=== PATIENT | female | born 1935 | race Caucasian/White ===

== ENCOUNTER 2020-09-05 00:46 | Inpatient (IN) | payer OTHER ==
[2020-09-05] MEDS ORDERED: METOPROLOL TARTRATE 5 MG/5 ML INJ IV ONE ×3 (01:48→17:49)
[2020-09-05 01:56] LABS: Absolute Lymphocytes (CBC) 0.9 K/uL (0.7-4.9); Basophils % 0.1 % (0-1.3); Lymphocytes % 8.3 % (15.3-44.8); MPV 8.6 fL (7.6-11.3); Protime INR 1.29; RBC Red Blood Cell Count 4.56 M/uL (3.86-4.86)
[2020-09-05 02:45] LABS: Albumin 2.6 g/dL (3.4-5.0); Bilirubin Direct 0.3 mg/dL (0-0.2); Bilirubin Total 0.6 mg/dL (0.2-1.0); Potassium 3.6 mmol/L (3.5-5.1); Protein, Total 6.7 g/dL (6.4-8.2); Troponin (Emerg Dept Use Only) 0.03 ng/mL (0.0-0.045)
--- NOTE | 2020-09-05 07:06 | ER ---
Nurse's Notes [facility] Name: Puja Ahn Age: 85 yrs Sex: Female : 1935 Arrival Date: 09/05/2020 Time: 01:05 Bed 25 Private MD: Diagnosis: Chest pain, unspecified;Atrial Fibrillation with RVR Presentation: 09/05 01:00 Initial Sepsis Screen: Does the patient meet any 2 criteria? HR > 90 bpm. No. Patient's sf initial sepsis screen is negative. Does the patient have a suspected source of infection? No. Patient's initial sepsis screen is negative. Risk Assessment: Do you want to hurt yourself or someone else? Patient reports no desire to harm self or others. Onset of symptoms was September 02, 2020. 01:00 Acuity: DENIS 2 01:07 Chief complaint: EMS states: Chest pain starting , seen by her PCP, Zelda with [facility], given tylenol no labs or other work-up at that time. Today complains of pain radiating to shoulders, dizziness, weakness, had episode of vomiting enroute. Coronavirus screen: Client denies travel out of the [place] in the last 14 days. vomiting. At this time, the client does not indicate any symptoms associated with coronavirus-19. Ebola Screen: Patient negative for fever greater than or equal to 101.5 degrees Fahrenheit, and additional compatible Ebola Virus Disease symptoms Patient denies exposure to infectious person. Patient denies travel to an Ebola-affected area in the 21 days before illness onset. No symptoms or risks identified at this time. 01:07 Method Of Arrival: EMS: [facility] Triage Assessment: 01:15 General: Appears in no apparent distress. comfortable, Behavior is calm, cooperative, sf appropriate for age. Pain: Denies pain. Neuro: No deficits noted. Level of Consciousness is awake, alert, Oriented to person, place, time, situation, Appropriate for age. Cardiovascular: Reports chest pain, (now resolved) Denies shortness of breath, Patient's skin is warm and dry. Rhythm is atrial fibrillation with rapid ventricular response. Respiratory: No deficits noted. Airway is patent Respiratory effort is even, unlabored, Respiratory pattern is regular, symmetrical. GI: Patient currently denies abdominal pain, nausea, vomiting. : No signs and/or symptoms were reported regarding the genitourinary system. Historical: - Allergies: 01:15 No Known Allergies; sf - Home Meds: 01:15 metoprolol succinate 50 mg oral Tb24 1 tab once daily [Active]; acetaminophen 500 mg sf Oral tab 1 tab three times a day [Active]; Plavix 75 mg Oral tab 1 tab once daily [Active]; atorvastatin 10 mg oral tab 1 tab once daily [Active]; irbesartan 300 mg oral tab 1 tab once daily [Active]; - PMHx: 01:15 Hypertension; High Cholesterol; Gastric Reflux; TIA; Atrial Fib; sf - PSHx: 01:15 None; sf - Immunization history:: Adult Immunizations up to date. - Social history:: Smoking status: Patient denies any tobacco usage or history of. Patient/guardian denies using alcohol, street drugs, IV drugs. Screenin:10 Abuse screen: Denies threats or abuse. Denies injuries from another. Nutritional sf screening: No deficits noted. Tuberculosis screening: No symptoms or risk factors identified. Never had TB. Possible symptoms: None Risk factors: None. Fall Risk None identified. No fall in past 12 months (0 pts). No secondary diagnosis (0 pts). IV access (20 points). Ambulatory Aid- None/Bed Rest/Nurse Assist (0 pts). Gait- Weak (10 pts.). Mental Status- Oriented to own ability (0 pts). Total Damon Fall Scale indicates Low Risk Score (25-44 pts). Fall prevention measures have been instituted. Side Rails Up X 2 Placed close to Nursing Station. Assessment: 01:00 Reassessment: SEE TRIAGE NOTE. sf 02:10 Reassessment: Patient appears in no apparent distress at this time. No changes from sf previously documented assessment. Patient and/or family updated on plan of care and expected duration. Pain level reassessed. Patient is alert, oriented x 3, equal unlabored respirations, skin warm/dry/pink. Patient states symptoms have improved. 03:30 Reassessment: Patient appears in no apparent distress at this time. No changes from sf previously documented assessment. Patient and/or family updated on plan of care and expected duration. Pain level reassessed. Patient is alert, oriented x 3, equal unlabored respirations, skin warm/dry/pink. 04:34 Reassessment: Patient appears in no apparent distress at this time. No changes from sf previously documented assessment. Patient and/or family updated on plan of care and expected duration. Pain level reassessed. Patient is alert, oriented x 3, equal unlabored respirations, skin warm/dry/pink. 05:26 Reassessment: Patient appears in no apparent distress at this time. Patient and/or sf family updated on plan of care and expected duration. Pain level reassessed. Patient is alert, oriented x 3, equal unlabored respirations, skin warm/dry/pink. 06:17 Reassessment: Patient appears in no apparent distress at this time. No changes from sf previously documented assessment. Patient and/or family updated on plan of care and expected duration. Pain level reassessed. Patient is alert, oriented x 3, equal unlabored respirations, skin warm/dry/pink. 07:25 Reassessment: pt up to bedside toilet with standby assist, no problems encountered. sg 07:40 Reassessment: pt observed back to bed, states feeling better, updated on need for sg admission, pt stated understanding, request to call to update him. pt states has phone with her. 09:15 Reassessment: Patient appears in no apparent distress at this time. Patient and/or ca1 family updated on plan of care and expected duration. Pain level reassessed. Patient is alert, oriented x 3, equal unlabored respirations, skin warm/dry/pink. Dr. Gilmore at bedside. Reassessment: Pt served with breakfast. 09:35 Reassessment: VO Dr. Gilmore, Give pt's Home meds at bedside. Irbesartan 300mg PO, ca1 Metoprolol Succinate ER 50 mg PO. 10:10 Reassessment: Patient appears in no apparent distress at this time. Patient and/or ca1 family updated on plan of care and expected duration. Pain level reassessed. Patient is alert, oriented x 3, equal unlabored respirations, skin warm/dry/pink. General: Appears. 10:37 Reassessment: Critical Lab Trop 1.88. Dr. Gilmore Notified by Telephone. No orders at ca1 this time. 11:05 Reassessment: Patient appears in no apparent distress at this time. Patient and/or ca1 family updated on plan of care and expected duration. Pain level reassessed. Patient is alert, oriented x 3, equal unlabored respirations, skin warm/dry/pink. 11:10 Reassessment: Called for report. Nurse will call back. ca1 11:50 Reassessment: Called for report. Nurse will call back. ca1 12:08 Reassessment: Patient appears in no apparent distress at this time. Patient and/or ca1 family updated on plan of care and expected duration. Pain level reassessed. Patient is alert, oriented x 3, equal unlabored respirations, skin warm/dry/pink. Vital Signs: 01:00 BP 158 / 138; Pulse 128; Resp 18; Temp 97.5(O); Pulse Ox 96% ; Weight 58.06 kg; Height sf 5 ft. 5 in. (165.10 cm); Pain 0/10; 01:30 BP 150 / 81; Pulse 122; Resp 18; Pulse Ox 95% ; sf 01:44 Pulse 86; sf 02:13 BP 118 / 81; Pulse 96; Resp 18; Pulse Ox 96% ; sf 02:30 BP 134 / 91; Pulse 101; Resp 16; Pulse Ox 96% ; sf 03:30 BP 148 / 83; Pulse 114; Resp 16; Pulse Ox 94% ; sf 04:00 BP 118 / 98; Pulse 119; Resp 16; Pulse Ox 95% ; sf 04:30 BP 110 / 70; Pulse 124; Resp 16; Pulse Ox 96% ; sf 05:01 BP 145 / 70; Pulse 52; Resp 16; Pulse Ox 95% ; sf 06:00 BP 138 / 94; Pulse 115; Resp 16; Pulse Ox 96% ; sf 06:30 BP 143 / 115; Pulse 127; Resp 16; Pulse Ox 93% ; sf 07:00 BP 129 / 90; Pulse 103; Resp 16; Pulse Ox 97% ; sf 09:04 BP 123 / 92; Pulse 122; Resp 19 S; Pulse Ox 96% on R/A; ca1 09:43 Pulse 111; ca1 10:00 BP 142 / 87; Pulse 116; Resp 16 S; Pulse Ox 96% on R/A; ca1 11:00 BP 111 / 80; Pulse 115; Resp 20 S; Pulse Ox 96% on R/A; ca1 12:08 BP 128 / 72; Pulse 116; Resp 19 S; Pulse Ox 97% on R/A; ca1 01:00 Body Mass Index 21.30 (58.06 kg, 165.10 cm) sf Vitals: 01:44 Cardiac Rhythm Assessment Atrial fibrillation W/PVC's. sf 04:00 Cardiac Rhythm Assessment Atrial fibrillation. sf ED Course: 01:02 EKG completed in triage. Results shown to MD. sf 01:02 EKG done, by ED staff, reviewed by Davonte Melgar MD. sf 01:05 Patient arrived in ED. sg 01:06 Harshad Saavedra, RN is Primary Nurse. sf 01:08 Davonte Melgar MD is Attending Physician. mh7 01:10 Patient has correct armband on for positive identification. Placed in gown. Bed in low sf position. Call light in reach. Side rails up X2. nurse monitoring on. Pulse ox on. NIBP on. Door closed. Noise minimized. Visitors limited. Lights dimmed. Verbal reassurance given. 01:10 Maintain EMS IV. Dressing intact. Good blood return noted. Site clean \T\ dry. Gauge \T\ sf site: 18 GA right AC. 01:13 Triage completed. sf 01:15 Arm band placed on left wrist. sf 01:30 Initial lab(s) drawn, by ky, sent to lab. IV is patent, is intact, with good blood sf return, Flushed right antecubital. 01:40 Magnesium Sent. sf 01:40 LFT's Sent. sf 01:40 CBC with Diff Sent. sf 01:40 XRAY Chest (1 view) Sent. sf 01:40 Basic Metabolic Panel Sent. sf 01:41 X-ray(s) taken. sf 01:46 XRAY Chest (1 view) In Process Unspecified. EDMS 02:18 No provider procedures requiring assistance completed. Patient admitted, IV remains in sf place. 02:45 COVID swab sent to lab. sf 03:29 CORONAVIRUS Sent. sf 07:04 Rudy Gilmore MD is Hospitalizing Provider. [facility] 07:07 Primary Nurse role handed off by Harshad Saavedra, SALUD sg 07:07 Harshad Guzmán, SALUD is Primary Nurse. sg 07:16 Report given to Harshad Rodriguez RN. sf 09:15 Adrianna Singh RN is Primary Nurse. ca1 Administered Medications: 01:30 Drug: Metoprolol 5 mg Route: IVP; Site: right antecubital; sf 02:23 Follow up: Response: No adverse reaction; Blood pressure is lowered sf 06:49 Drug: Metoprolol 5 mg Route: IVP; Site: right antecubital; sf 07:09 Follow up: Response: No adverse reaction; Blood pressure is lowered sf 07:13 Drug: Aspirin Chewable Tablet 162 mg Route: PO; sf 10:56 Follow up: Response: No adverse reaction ca1 09:38 Drug: metoprolol succinate ER 50 mg 1 tabs Route: PO; ca1 10:55 Follow up: Response: No adverse reaction ca1 09:41 Drug: Irbesartan 300 mg Route: PO; ca1 10:55 Follow up: Response: No adverse reaction ca1 Outcome: 02:19 Instructed on the need for admit, by DORITA Byrd sf 07:05 Decision to Hospitalize by Provider. [facility] 11:33 Condition: stable ca1 12:20 Admitted to Med/surg accompanied by tech, via stretcher, room 222, with chart, Report ca1 called to SALUD Leroy 12:55 Patient left the ED. iw Signatures: Dispatcher [facility] EDMS Harshad Guzmán RN RN sg Lida Turcios RN RN Thomas Eng RN RN rr5 Adrianna Singh RN RN ca1 Davonte Melgar MD MD [facility] Harshad Saavedra RN RN sf Corrections: (The following items were deleted from the chart) 07:19 07:16 Report given to Jennifer Patricia RN sf 09:01 07:25 Reassessment: pt up to bedside toilet with standby assist, no problems sg encountered. rr5 09:01 07:40 Reassessment: pt observed back to bed, states feeling better, updated on need for sg admission, pt stated understanding, request to call to update him. pt states has phone with her rr5 12:16 10:37 Reassessment: Critical Lab Trop 1.88. Dr. Gilmore Notified. ca1 ca1
--- NOTE | 2020-09-05 07:06 | EDPHYS ---
Physician Documentation [facility] Name: Puja Ahn Age: 85 yrs Sex: Female : 1935 Arrival Date: 09/05/2020 Time: 01:05 Bed 25 Private MD: ED Physician Davonte Melgar HPI: 09/05 02:58 This 85 yrs old Female presents to ER via EMS with complaints of Doesn't Feel mh7 Right. 02:58 The patient or guardian reports chest pain that is located primarily in the substernal mh7 area. Onset: 2 day(s) ago. The pain radiates to back. Associated signs and symptoms: Pertinent positives: palpitations, shortness of breath, generalized fatigue, Pertinent negatives: abdominal pain, cough, diaphoresis, dizziness, headache, lower extremity pain, lower extremity swelling, lightheadedness, nausea, near syncope, recent travel, syncope, vomiting. The chest pain is described as a pressure. Duration: The patient or guardian reports multiple episodes, that are intermittent, that wax and wane, with no pattern. Modifying factors: The symptoms are alleviated by nothing. the symptoms are aggravated by nothing. Severity of pain: At its worst the pain was moderate 2 day(s) ago, in the emergency department the pain has improved moderately. Historical: - Allergies: 01:15 No Known Allergies; sf - Home Meds: 01:15 metoprolol succinate 50 mg oral Tb24 1 tab once daily [Active]; acetaminophen 500 mg sf Oral tab 1 tab three times a day [Active]; Plavix 75 mg Oral tab 1 tab once daily [Active]; atorvastatin 10 mg oral tab 1 tab once daily [Active]; irbesartan 300 mg oral tab 1 tab once daily [Active]; - PMHx: 01:15 Hypertension; High Cholesterol; Gastric Reflux; TIA; Atrial Fib; sf - PSHx: 01:15 None; sf - Immunization history:: Adult Immunizations up to date. - Social history:: Smoking status: Patient denies any tobacco usage or history of. Patient/guardian denies using alcohol, street drugs, IV drugs. ROS: 03:03 Constitutional: Negative for fever, chills, and weight loss, Eyes: Negative for injury, mh7 pain, redness, and discharge, ENT: Negative for injury, pain, and discharge, Neck: Negative for injury, pain, and swelling, Abdomen/GI: Negative for abdominal pain, nausea, vomiting, diarrhea, and constipation, Back: Negative for injury and pain, : Negative for injury, bleeding, discharge, and swelling, MS/Extremity: Negative for injury and deformity, Skin: Negative for injury, rash, and discoloration, Neuro: Negative for headache, weakness, numbness, tingling, and seizure, Psych: Negative for depression, anxiety, suicide ideation, homicidal ideation, and hallucinations, Allergy/Immunology: Negative for hives, rash, and allergies, Endocrine: Negative for neck swelling, polydipsia, polyuria, polyphagia, and marked weight changes, Hematologic/Lymphatic: Negative for swollen nodes, abnormal bleeding, and unusual bruising. Exam: 03:03 Constitutional: This is a well developed, well nourished patient who is awake, alert, mh7 and in no acute distress. Head/Face: Normocephalic, atraumatic. Eyes: Pupils equal round and reactive to light, extra-ocular motions intact. Lids and lashes normal. Conjunctiva and sclera are non-icteric and not injected. Cornea within normal limits. Periorbital areas with no swelling, redness, or edema. Neck: Trachea midline, no thyromegaly or masses palpated, and no cervical lymphadenopathy. Supple, full range of motion without nuchal rigidity, or vertebral point tenderness. No Meningismus. Chest/axilla: Normal chest wall appearance and motion. Nontender with no deformity. No lesions are appreciated. 03:03 Abdomen/GI: Soft, non-tender, with normal bowel sounds. No distension or tympany. No guarding or rebound. No evidence of tenderness throughout. Back: No spinal tenderness. No costovertebral tenderness. Full range of motion. Skin: Warm, dry with normal turgor. Normal color with no rashes, no lesions, and no evidence of cellulitis. MS/ Extremity: Pulses equal, no cyanosis. Neurovascular intact. Full, normal range of motion. Neuro: Awake and alert, GCS 15, oriented to person, place, time, and situation. Cranial nerves II-XII grossly intact. Motor strength 5/5 in all extremities. Sensory grossly intact. Cerebellar exam normal. Normal gait. Psych: Awake, alert, with orientation to person, place and time. Behavior, mood, and affect are within normal limits. 03:03 Cardiovascular: Rate: tachycardic, Rhythm: irregularly irregular, Pulses: no pulse deficits are appreciated, Heart sounds: normal, normal S1and S2, Edema: is not appreciated, JVD: is not appreciated. 03:03 Respiratory: the patient does not display signs of respiratory distress, Respirations: normal, Breath sounds: rhonchi, that are mild, are scattered, Respiratory rate: 18 Vital Signs: 01:00 BP 158 / 138; Pulse 128; Resp 18; Temp 97.5(O); Pulse Ox 96% ; Weight 58.06 kg; Height sf 5 ft. 5 in. (165.10 cm); Pain 0/10; 01:30 BP 150 / 81; Pulse 122; Resp 18; Pulse Ox 95% ; sf 01:44 Pulse 86; sf 02:13 BP 118 / 81; Pulse 96; Resp 18; Pulse Ox 96% ; sf 02:30 BP 134 / 91; Pulse 101; Resp 16; Pulse Ox 96% ; sf 03:30 BP 148 / 83; Pulse 114; Resp 16; Pulse Ox 94% ; sf 04:00 BP 118 / 98; Pulse 119; Resp 16; Pulse Ox 95% ; sf 04:30 BP 110 / 70; Pulse 124; Resp 16; Pulse Ox 96% ; sf 05:01 BP 145 / 70; Pulse 52; Resp 16; Pulse Ox 95% ; sf 06:00 BP 138 / 94; Pulse 115; Resp 16; Pulse Ox 96% ; sf 06:30 BP 143 / 115; Pulse 127; Resp 16; Pulse Ox 93% ; sf 07:00 BP 129 / 90; Pulse 103; Resp 16; Pulse Ox 97% ; sf 09:04 BP 123 / 92; Pulse 122; Resp 19 S; Pulse Ox 96% on R/A; ca1 09:43 Pulse 111; ca1 10:00 BP 142 / 87; Pulse 116; Resp 16 S; Pulse Ox 96% on R/A; ca1 11:00 BP 111 / 80; Pulse 115; Resp 20 S; Pulse Ox 96% on R/A; ca1 12:08 BP 128 / 72; Pulse 116; Resp 19 S; Pulse Ox 97% on R/A; ca1 01:00 Body Mass Index 21.30 (58.06 kg, 165.10 cm) sf MDM: 07:02 Differential diagnosis: abnormal EKG, acute myocardial infarction, acute pericarditis, 7 anxiety, coronary artery disease chest wall pain, congestive heart failure costochondritis, myocarditis, pleurisy, pneumonia, pneumothorax. HEART Score: History: Moderately Suspicious (1), ECG: Non specific repolarization disturbance / LBTB / PM (1), Age: > or = 65 years (2), Risk Factors: 1 or 2 risk factors (1), [Hypercholesterolemia] [Hypertension] Troponin: < or = 1 x Normal Limit (0), Total Score = 5. Data reviewed: vital signs, nurses notes, EMS record, lab test result(s), cardiac enzymes, CBC, electrolytes, EKG, radiologic studies, plain films. Data interpreted: Pulse oximetry: on room air is 95 %. Interpretation: normal. 07:04 Counseling: I had a detailed discussion with the patient and/or guardian regarding: the [facility] historical points, exam findings, and any diagnostic results supporting the discharge/admit diagnosis, the presence of at least one elevated blood pressure reading (>120/80) during this emergency department visit, lab results, radiology results, the need for further work-up and treatment in the hospital. Response to treatment: the patient's symptoms have mildly improved after treatment. 07:05 Patient medically screened. [facility] 09/05 01:17 Order name: Basic Metabolic Panel [facility] 09/05 01:17 Order name: CBC with Diff [facility] 09/05 01:17 Order name: LFT's [facility] 09/05 01:17 Order name: Magnesium [facility] 09/05 01:17 Order name: NT PRO-BNP; Complete Time: 02:58 [facility] 09/05 01:17 Order name: PT-INR; Complete Time: 02:13 [facility] 09/05 01:17 Order name: Troponin (emerg Dept Use Only); Complete Time: 02:58 [facility] 09/05 01:18 Order name: Basic Metabolic Panel; Complete Time: 02:58 [facility] 09/05 01:18 Order name: CBC with Automated Diff; Complete Time: 02:13 [facility] 09/05 01:18 Order name: Liver (Hepatic) Function; Complete Time: 02:58 EDMS 09/05 01:18 Order name: Magnesium; Complete Time: 02:58 EDMS 09/05 03:11 Order name: CORONAVIRUS [facility] 09/05 04:31 Order name: SARS-COV-2 RT PCR; Complete Time: 06:40 EDMS 09/05 01:17 Order name: XRAY Chest (1 view) [facility] 09/05 01:17 Order name: EKG; Complete Time: 01:19 7 09/05 07:31 Order name: CONS Physician Consult EDMS 09/05 07:31 Order name: Consistent Carb (ADA) [address] EDMS 09/05 07:31 Order name: Basic Metabolic Panel EDMS 09/05 07:31 Order name: Basic Metabolic Panel EDMS 09/05 07:31 Order name: CBC with Automated Diff EDMS 09/05 07:31 Order name: CBC with Automated Diff EDMS 09/05 07:31 Order name: Troponin I EDMS 09/05 07:31 Order name: Troponin I EDMS 09/05 07:31 Order name: Troponin I EDMS 09/05 01:07 Order name: EKG - Nurse/Tech; Complete Time: 01:07 09/05 01:17 Order name: Cardiac monitoring; Complete Time: 01:20 [facility] 09/05 01:17 Order name: IV Saline Lock; Complete Time: 01:20 [facility] 09/05 01:17 Order name: Labs collected and sent; Complete Time: 01:39 7 09/05 01:17 Order name: O2 Per Protocol; Complete Time: 01:20 [facility] 09/05 01:17 Order name: O2 Sat Monitoring; Complete Time: 01:20 7 09/05 07:31 Order name: EKG Electrocardiogram [facility] 09/05 07:31 Order name: EKG Electrocardiogram [facility] 09/05 07:31 Order name: EKG Electrocardiogram [facility] 09/05 07:31 Order name: EKG Electrocardiogram EDMS Administered Medications: 01:30 Drug: Metoprolol 5 mg Route: IVP; Site: right antecubital; sf 02:23 Follow up: Response: No adverse reaction; Blood pressure is lowered sf 06:49 Drug: Metoprolol 5 mg Route: IVP; Site: right antecubital; sf 07:09 Follow up: Response: No adverse reaction; Blood pressure is lowered sf 07:13 Drug: Aspirin Chewable Tablet 162 mg Route: PO; sf 10:56 Follow up: Response: No adverse reaction ca1 09:38 Drug: metoprolol succinate ER 50 mg 1 tabs Route: PO; ca1 10:55 Follow up: Response: No adverse reaction ca1 09:41 Drug: Irbesartan 300 mg Route: PO; ca1 10:55 Follow up: Response: No adverse reaction ca1 Disposition: 09/05/20 07:05 Hospitalization ordered by Rudy Gilmore for Inpatient Admission. Preliminary diagnosis are Chest pain, unspecified, Atrial Fibrillation with RVR. - Bed requested for Telemetry/MedSurg (Inpatient). - Status is Inpatient Admission. iw - Condition is Stable. - Problem is new. - Symptoms have improved. Signatures: Dispatcher [employer] EDMS Lida Turcios RN RN iw Laquita Baxter Adrianna Singh RN RN ca1 Davonte Melgar MD MD 7 Harshad Saavedra RN RN sf Corrections: (The following items were deleted from the chart) 11:01 07:05 Hospitalization Ordered by Rudy Gilmore MD for Inpatient Admission. Preliminary eb diagnosis is Chest pain, unspecified; Atrial Fibrillation with RVR. Bed requested for Telemetry/MedSurg (Inpatient). Status is Inpatient Admission. Condition is Stable. Problem is new. Symptoms have improved. [facility] 12:55 11:01 09/05/2020 07:05 Hospitalization Ordered by Rudy Gilmore MD for Inpatient iw Admission. Preliminary diagnosis is Chest pain, unspecified; Atrial Fibrillation with RVR. Bed requested for Telemetry/MedSurg (Inpatient). Status is Inpatient Admission. Condition is Stable. Problem is new. Symptoms have improved. eb
[2020-09-05] MEDS ORDERED: ASPIRIN 81 MG CHEWABLE TABLET ONE (07:29)
[2020-09-05] MEDS ORDERED: ACETAMINOPHEN 325 MG TABLET PO PRN (08:38)
[2020-09-05] MEDS ORDERED: ASPIRIN EC 81 MG TAB PO SCH (09:00)
[2020-09-05] MEDS ORDERED: ZOLPIDEM TARTRATE 5 MG TABLET PO PRN (10:19)
--- NOTE | 2020-09-05 10:28 | P.HP ---
Certification for Inpatient Patient admitted to: Observation With expected LOS: <2 Midnights Patient will require the following post-hospital care: None Practitioner: I am a practitioner with admitting privileges, knowledge of patient current condition, hospital course, and medical plan of care. Services: Services provided to patient in accordance with Admission requirements found in Title 42 Section 412.3 of the Code of Federal Regulations Patient History Date of Service: 09/05/20 Primary Care Provider: Deirdre Reason for admission: chest pain History of Present Illness: Patient recently establish care. She has a history of afib, htn and hyperlipidemia. She normally follows up with Dr. Pinedo. Has been having some chest discomfort since Sunday. Came to the office on . Was treated for allergies and reactive airway disease as she had a few crackles at that time. The patient woke up last night feeling pain in her chest, sob and tightness in her shoulders. However was not radiating down her left arm. She came to the ER where she was found to have a rapid heart rate. The patient is still feeling a bit of her chest discomfort. Her heart rate was in the 110-130s Allergies No Known Allergies Allergy (Unverified 08/24/12 07:15) Home Medications: Amlodipine [Norvasc*] 10 mg PO DAILY 08/24/12 Atorvastatin Calcium [Lipitor] 10 mg PO DAILY 08/24/12 Clopidogrel Bisulfate [Plavix] 75 mg PO BEDTIME 08/24/12 Irbesartan 300 mg PO DAILY 08/24/12 hydroCHLOROthiazide [Hydrodiuril*] 25 mg PO DAILY 08/24/12 Benzonatate [Tessalon Perle*] 100 mg PO TIDP PRN #30 cap 08/25/12 Oseltamivir [Tamiflu*] 75 mg PO BID #10 cap 08/25/12 Zolpidem Tartrate [Ambien*] 5 mg PO BEDTIME PRN PRN #10 tablet 08/25/12 - Past Medical/Surgical History Diabetic: No - Social History Alcohol use: No CD- Drugs: No Caffeine use: Yes Review of Systems 10-point ROS is otherwise unremarkable Respiratory: Shortness of Breath Cardiovascular: Chest Pain, Palpitations Physical Examination - Physical Exam General: Alert, In no apparent distress HEENT: Atraumatic, PERRLA, Mucous membr. moist/pink, EOMI, Sclerae nonicteric Neck: Supple, 2+ carotid pulse no bruit, No LAD, Without JVD or thyroid abnormality Respiratory: Clear to auscultation bilaterally, Normal air movement Cardiovascular: Regular rate/rhythm, Normal S1 S2 Gastrointestinal: Normal bowel sounds, No tenderness Musculoskeletal: No tenderness Integumentary: No rashes Neurological: Normal gait, Normal speech, Normal strength at 5/5 x4 extr, Normal tone, Normal affect Lymphatics: No axilla or inguinal lymphadenopathy - Studies Laboratory Data (last 24 hrs) 09/05/20 01:30: PT 14.9 H, INR 1.29 09/05/20 01:30: WBC 10.70, Hgb 12.2, Hct 37.0, Plt Count 323 09/05/20 01:30: Sodium 132 L, Potassium 3.6, BUN 18, Creatinine 0.91, Glucose 170 H, Magnesium 2.0, Total Bilirubin 0.6, AST 12 L, ALT 15, Alkaline Phosphatase 89 Assessment and Plan - Problems (Diagnosis) (1) Atrial fibrillation with RVR Current Visit: Yes Status: Acute Plan: will restart her metoprolol. Adjust it based on her heart rate. she has a minor elevation in her troponin. I do not believe this significant. However will follow her troponins. will have her seen by Cardiology. Will hold off on an echocardiogram. Dr. Pinedo is her regular jet engine mechanic. She has an appointment with her at the end of the month. May decided to do an echo as an outpatient. (2) HTN (hypertension) Current Visit: Yes Status: Acute Plan: continue irbestartan Qualifiers: Hypertension type: essential hypertension Qualified Code(s): I10 - Essential (primary) hypertension (3) Hyperlipidemia Current Visit: Yes Status: Acute Plan: continue her atorvastatin. Will check her lipid profile as an outpatient Qualifiers: Hyperlipidemia type: moderate mixed hyperlipidemia not requiring statin therapy Qualified Code(s): E78.2 - Mixed hyperlipidemia Discharge Plan: Home Plan to discharge in: 24 Hours - Advance Directives Does patient have a Living Will: No Does patient have a Durable POA for Healthcare: No - Code Status/Comfort Care Code Status Assessed: Yes Code Status: Full Code Physician Review: Patient Assessed, Agree with Above Assessment and Plan Critical Care: No Time Spent Managing Pts Care (In Minutes): 40
[2020-09-05] MEDS: ATORVASTATIN 20 MG TAB PO SCH (11:00)
--- NOTE | 2020-09-05 11:08 | P.PN ---
Date of Service: 09/05/20 Patient had a bump in her troponin. Have discussed this with Dr. Gregg who will see her shortly
[2020-09-05] MEDS ORDERED: AMIODARONE HCL 450 MG in D5W 241 ML IV SCH (13:00)
[2020-09-05] MEDS ORDERED: AMIODARONE HCL 150 MG in D5W 100 ML IV STA (13:33)
[2020-09-05] MEDS ORDERED: AMIODARONE HCL 900 MG in Dextrose 5%-Water 482 ML IV SCH (14:00)
[2020-09-05] MEDS ORDERED: AMIODARONE IN DEXTROSE,ISO-OSM 0 MG/0 ML BAG IV ONE (14:25)
[2020-09-05] MEDS ORDERED: HEPARIN/D5W 25,000 UNIT/500 ML BAG IV PRN ×2 (15:00)
--- NOTE | 2020-09-05 15:43 | CON ---
Date of Consultation: 09/05/2020 Reason For Consultation: Elevated troponin. History Of Present Illness: This is an 85-year-old female with history of atrial fibrillation, dysli pidemia, hypertension, who presented with chest discomfort and palpitations. She feels nauseated. I n the ER, was found to be in atrial fibrillation with a ventricular response rate in the 130s. At th e time of my evaluation, she feels better. There is no chest pain. She is not known to have any his tory of coronary artery disease. Past Medical History: As outlined above in the HPI. Medications: Refer to reconciliation sheet for detailed list. Allergies: NO KNOWN DRUG ALLERGIES. Family History: No premature coronary artery disease or cancer. Social History: She does not smoke or drink. Does not use any drugs. Review of Systems: All systems reviewed and they were negative except what mentioned in the HPI. Physical Examination: Vital Signs: Temperature is 98.4, pulse 105, breathing at 18, blood pressure is 134/74, saturating 9 8%. General: Pleasant elderly female, no apparent distress. Head and Neck: Pupils are equal, react to light. Intact eye movements. No JVD. No cervical lympha denopathy. Neck: Supple. Thyroid is not enlarged. Lungs: Clear to auscultation bilaterally. No rhonchi, rales, or crackles. No accessory muscle use. Heart: Irregularly irregular. No extra sounds. Abdomen: Soft, nontender. Bowel sounds positive. No organomegaly. No rigidity or rebound. Extremities: No edema, clubbing, or cyanosis. Intact pulses. Skin: No rash. Neurologic: Alert, awake, oriented x3. No acute focal deficits appreciated. Investigations: Troponin 1.88. Sodium 132, creatinine is 0.91. NT-proBNP is 7280. Hemoglobin is 1 2.2. Assessment And Plan: 1.Non-ST elevation myocardial infarction. Chest pain-free at this point. Start her on low-dose asp irin 325 and then 81 mg daily and start her on IV heparin drip for therapeutic PTT per ACS protocol a nd keep n.p.o. past midnight for coronary angiogram tomorrow morning. 2.Atrial fibrillation. Rate is still high. Recommend IV amiodarone drip, load with 150 mg over 10 minutes, then 1 mg/minute for 6 hours, then 0.5 mg/minute for the remainder of the 24 hours and use m etoprolol as needed for better rate control. Thank you for the consult. ANALISA Voice ID: [id number] Report ID: [id number]
[2020-09-05 16:16] VITALS: BMI 21.1
[2020-09-05] MEDS: ASPIRIN EC 81 MG TAB PO SCH (17:14)
[2020-09-05] MEDS: METOPROLOL XL 50 MG TAB PO SCH (17:15)
[2020-09-05] MEDS ORDERED: ASPIRIN EC 81 MG TAB PO ONE (17:23)
[2020-09-05] MEDS ORDERED: METOPROLOL XL 50 MG TAB PO ONE (17:23)
[2020-09-05] MEDS ORDERED: METOPROLOL TARTRATE 5 MG/5 ML INJ IV STA (17:31)
[2020-09-05] MEDS: CLOPIDOGREL 75 MG TABLET PO SCH (20:50)
[2020-09-05] MEDS ORDERED: CLOPIDOGREL 75 MG TABLET ONE (21:00)
[2020-09-05] MEDS ORDERED: HEPARIN 5000 UNIT/ML 1 ML VIAL ONE (23:44)
[2020-09-06] MEDS: ONDANSETRON 4 MG/2 ML VIAL IV PRN ×2 (00:19→09:26)
[2020-09-06] MEDS ORDERED: ONDANSETRON 4 MG/2 ML VIAL ONE ×2 (00:36→09:37)
[2020-09-06 04:17] LABS: Absolute Lymphocytes (CBC) 1.3 K/uL (0.7-4.9); Basophils % 0.2 % (0-1.3); Hematocrit 35.9 % (36.0-45.0); Lymphocytes % 11.9 % (15.3-44.8); MPV 8.4 fL (7.6-11.3); RBC Red Blood Cell Count 4.45 M/uL (3.86-4.86)
[2020-09-06 04:42] LABS: Potassium 4.1 mmol/L (3.5-5.1)
[2020-09-06] MEDS ORDERED: HEPARIN 5000 UNIT/ML 1 ML VIAL ONE (05:51)
[2020-09-06] MEDS ORDERED: METOPROLOL XL 50 MG TAB PO ONE ×2 (06:09→17:31)
[2020-09-06] MEDS: METOPROLOL XL 50 MG TAB PO SCH ×2 (06:37→17:24)
--- NOTE | 2020-09-06 07:06 | P.PN ---
Subjective Date of Service: 09/06/20 Primary Care Provider: Deirdre Chief Complaint: chest pain Subjective: Improving (heart rate stable) Review of Systems 10-point ROS is otherwise unremarkable General: Malaise Gastrointestinal: Nausea Physical Examination - Vital Signs Temperature: 97.0 F Blood Pressure: 133/71 Pulse: 62 Respirations: 18 Pulse Ox (%): 97 - Physical Exam General: Alert, In no apparent distress HEENT: Atraumatic, PERRLA, EOMI Neck: Supple, JVD not distended Respiratory: Clear to auscultation bilaterally, Normal air movement Cardiovascular: Regular rate/rhythm, Normal S1 S2 Gastrointestinal: Normal bowel sounds, No tenderness Musculoskeletal: No tenderness Integumentary: No rashes Neurological: Normal speech, Normal tone, Normal affect Lymphatics: No axilla or inguinal lymphadenopathy Assessment & Plan - Problems (Diagnosis) (1) Atrial fibrillation with RVR Current Visit: Yes Status: Acute Plan: will restart her metoprolol. Adjust it based on her heart rate. she has a minor elevation in her troponin. I do not believe this significant. However will follow her troponins. will have her seen by Cardiology. Will hold off on an echocardiogram. Dr. 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 She has an a ppointment with her at the end of the month. May decided to do an echo as an outpatient. 09/06 Patient on amiodarone and heparin. She had a troponin spike. Plans for cath today with Dr. Gregg (2) HTN (hypertension) Current Visit: Yes Status: Acute Plan: continue irbestartan Qualifiers: Hypertension type: essential hypertension Qualified Code(s): I10 - Essential (primary) hypertension (3) Hyperlipidemia Current Visit: Yes Status: Acute Plan: continue her atorvastatin. Will check her lipid profile as an outpatient Qualifiers: Hyperlipidemia type: moderate mixed hyperlipidemia not requiring statin therapy Qualified Code(s): E78.2 - Mixed hyperlipidemia Discharge Plan: Home Plan to discharge in: Greater than 2 days - Code Status/Comfort Care Code Status Assessed: No Physician Review: Patient Assessed, Agree with Above Assessment and Plan Critical Care: Yes Time Spent Managing Pts Care (In Minutes): 25
[2020-09-06] MEDS ORDERED: NA CHLORIDE 0.9% 1,000 ML ONE ×2 (07:46→20:21)
[2020-09-06] MEDS ORDERED: NA CHLORIDE 0.9% 1,000 ML IV SCH ×2 (08:00→12:00)
[2020-09-06] MEDS ORDERED: HOME MED 1 EA UNK (Irbesartan [Irbesartan] 300 MG Tablet) PO SCH (09:00)
[2020-09-06] MEDS ORDERED: IRBESARTAN 150 MG TAB PO SCH (09:00)
[2020-09-06] MEDS: ASPIRIN EC 81 MG TAB PO SCH (09:13)
[2020-09-06] MEDS: ATORVASTATIN 20 MG TAB PO SCH (09:16)
[2020-09-06] MEDS ORDERED: lisinopriL 10 MG TAB ONE (09:29)
[2020-09-06] MEDS ORDERED: ASPIRIN EC 81 MG TAB PO ONE (09:29)
[2020-09-06] MEDS ORDERED: ATORVASTATIN 20 MG TAB ONE (09:33)
[2020-09-06] MEDS ORDERED: ATROPINE SULF 1 MG/10 ML SYR IV ONE (11:15)
[2020-09-06] MEDS ORDERED: MIDAZOLAM HCL 2 MG/2 ML INJ ONE (11:15)
[2020-09-06] MEDS ORDERED: FENTANYL CITR 100 MCG/2 ML ONE (11:15)
[2020-09-06] MEDS ORDERED: NA CHLORIDE 0.9% 0 ML ONE (11:16)
[2020-09-06] MEDS ORDERED: HEPA 1000U/500MLS 1,000 UNIT/500 ML BAG IV ONE (11:16)
[2020-09-06] MEDS ORDERED: ACETYLCYST 20% 4 ML VIAL IH ONE (11:21)
--- NOTE | 2020-09-06 11:40 | OP ---
Date of Procedure: 09/06/2020 Surgeon: Preston Pinedo MD Senior Net Architect: Noellealisson. Case was discussed with the family. I will get Dr. Gilmore call and give him an update. When she goes home, I will see the patient in the office in the next 2 weeks. If she continues to be symptomatic, we will consider cardioversion. Procedure: Left heart catheterization with selective coronary arteriogram. Indication: Non-ST elevation myocardial infarction, new onset atrial fibrillation in a patient with hypertension and dyslipidemia. Procedure In Detail: Ms. Rodney is 85. She was brought to the pathology laboratory aide today as an inpatient, preppe d and draped in the routine sterile fashion. Not given Versed or fentanyl for sedation because of la bile hypertension. A 6-Surinamese sheath introduced in the right common femoral artery successfully usin g the Seldinger technique and 10 cc of Xylocaine. Angiography there was normal. StarClose was used to close the procedure. JL4 and JR4 catheters were used to select the left main and right main appro priately. The left main was normal. The RCA was normal. The circumflex was normal. She was right dominant with a 70% to 80% diagonal stenosis. She was in atrial fibrillation, rate of 50s. She had a 40% proximal LAD. A 6-Surinamese sheath and catheters were used. There were no complications. Blood loss was 5 cc. Total conscious sedation was 45 minutes. Postoperative Diagnoses: Mild coronary artery disease; atrial fibrillation, rate controlled; acute r enal failure. Plan: Plan is for medical therapy from a heart standpoint. She will be on aspirin, Plavix, statin i n addition to her home medication. I will stop her Avapro, stop her heparin, stop her amiodarone. S tart Eliquis, hydrate her, give her Mucomyst. Observe overnight and sent home in the morning. She will b e at bedrest for 2 hours. NB/CORINAL Voice ID: [id number] Report ID: [id number]
[2020-09-06] MEDS ORDERED: NITROGLYCERIN 0.4 MG/TAB SL PRN (12:00)
[2020-09-06] MEDS ORDERED: ACETAMINOPHEN 325 MG TABLET PO PRN (12:00)
--- NOTE | 2020-09-06 14:02 | RAD REPORT ---
EXAM DESCRIPTION: CHEST PAIN COMPARISON: None. TECHNIQUE: XR CHEST 1 VIEW 09/05/2020 1:17 AM BIOLOGY INTERN FINDINGS: The heart is enlarged. Lungs are clear without consolidation, atelectasis, mass or edema. There is no pleural effusion. There is no pneumothorax. There are no acute osseous findings. IMPRESSION: Clear lungs. Electronically signed by: Maninder Jolly MD 09/05/2020 5:04 AM BIOLOGY INTERN Due to temporary technical issues with the PACS/Fluency reporting system, reports are being signed by the in house radiologists without review as a courtesy to insure prompt reporting. The interpreting radiologist is fully responsible for the content of the report.
[2020-09-06] MEDS: CLOPIDOGREL 75 MG TABLET PO SCH (20:15)
[2020-09-06] MEDS: APIXABAN 2.5 MG TABLET PO SCH (20:15)
[2020-09-06] MEDS ORDERED: CLOPIDOGREL 75 MG TABLET ONE (20:21)
[2020-09-07] MEDS: METOPROLOL XL 50 MG TAB PO SCH ×2 (05:42→17:34)
[2020-09-07] MEDS ORDERED: METOPROLOL XL 50 MG TAB PO ONE ×2 (05:44→17:51)
[2020-09-07 06:03] LABS: Potassium 4.2 mmol/L (3.5-5.1)
[2020-09-07] MEDS ORDERED: ATORVASTATIN 20 MG TAB ONE (07:55)
[2020-09-07] MEDS ORDERED: ASPIRIN EC 81 MG TAB PO ONE (07:55)
[2020-09-07] MEDS: NA CHLORIDE 0.9% 1,000 ML IV SCH ×4 (08:11→23:04)
[2020-09-07] MEDS: ATORVASTATIN 20 MG TAB PO SCH (08:23)
[2020-09-07] MEDS: ASPIRIN EC 81 MG TAB PO SCH (08:24)
[2020-09-07] MEDS: APIXABAN 2.5 MG TABLET PO SCH ×2 (08:24→21:31)
--- NOTE | 2020-09-07 09:03 | ECHO ---
HEIGHT: 5 ft 5 in WEIGHT: 127 lb 0 oz DATE OF STUDY: 09/06/[address]: Preston Pinedo MD 2-DIMENSIONAL: YES M.MODE: YES DOPPLER: YES COLOR FLOW: YES TDS: NO PORTABLE: YES DEFINITY: NO BUBBLE STUDY: NO DIAGNOSIS: HEART FAILURE CARDIAC HISTORY: CATHERIZATION: YES SURGERY: NO PROSTHETIC VALVE: NO PACEMAKER: NO MEASUREMENTS (cm) DIASTOLIC (NORMALS) SYSTOLIC (NORMALS) IVSd 1.2 (0.6-1.2) LA Diam 3.8 (1.9-4.0) LVEF 30-35% LVIDd 4.5 (3.5-5.7) LVIDs 3.7 (2.0-3.5) %FS 18% LVPWd 1.2 (0.6-1.2) Ao Diam 2.8 (2.0-3.7) 2 DIMENSIONAL ASSESSMENT: RIGHT ATRIUM: NORMAL LEFT ATRIUM: ENLARGED RIGHT VENTRICLE: NORMAL LEFT VENTRICLE: DEPRESSED FUNCTION TRICUSPID VALVE: MODERATE TRICUSPID REGURGITATION MITRAL VALVE: MODERATE MITRAL REGURGITATION PULMONIC VALVE: MILD PULMONIC INSUFFIENCY AORTIC VALVE: MILD AORTIC INSUFFIENCY PERICARDIAL EFFUSION: NONE AORTIC ROOT: NORMAL LEFT VENTRICULAR WALL MOTION: MODERATE GLOBAL HYPOKINESIS. DOPPLER/COLOR FLOW: SEE BELOW. COMMENTS: MODERATELY DEPRESSED LEFT VENTRICULAR EJECTION FRACTION 30-35% WITH MODERATE GLOBAL HYPOKINESIS. LEFT ATRIAL ENLARGEMENT. MODERATE MITRAL REGURGITATION, MODERATE TRICUSPID REGURGITATION, MILD AORTIC INSUFFIENCY. 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 TECHNOLOGIST: AURY MOLINA
[2020-09-07 11:17] LABS: Urine Appearance CLOUDY; Urine Bilirubin NEGATIVE (NEG); Urine Blood NEGATIVE (NEG); Urine Color YELLOW; Urine Glucose NEGATIVE (NEG); Urine Protein 1+ (NEG); Urine Specific Gravity 1.025 (1.005-1.030)
[2020-09-07 12:25] LABS: Urine Microscopic Reflex ORDER UMIC
--- NOTE | 2020-09-07 12:45 | RAD REPORT ---
EXAM DESCRIPTION: US - Renal Ultrasound-Complete - 09/07/2020 11:14 am CLINICAL HISTORY: Acute renal insufficiency COMPARISON: None. FINDINGS: The right kidney measures 9 cm with an increased echotexture. The left kidney measures 10 cm with an increased echotexture. 1.7 centimeter cyst Hydronephrosis is not seen. No gross abnormality of bladder is seen IMPRESSION: Increased renal echotexture consistent with parenchymal disease
[2020-09-07 13:19] LABS: Urine Protein/Creatinine Ratio 0.9 ratio (<0.15)
[2020-09-07 14:11] LABS: Urine Bacteria LOADED /HPF (<20); Urine RBC NONE SEEN /HPF (NONE SEEN)
[2020-09-07] MEDS ORDERED: NA CHLORIDE 0.9% 1,000 ML ONE ×2 (14:15→22:45)
--- NOTE | 2020-09-07 16:02 | P.PN ---
Subjective Date of Service: 09/07/20 Primary Care Provider: Deirdre Chief Complaint: chest pain Subjective: No new changes (creatine continues to climb) Review of Systems 10-point ROS is otherwise unremarkable General: Malaise Physical Examination - Vital Signs Temperature: 97.9 F Blood Pressure: 165/65 Pulse: 58 Respirations: 20 Pulse Ox (%): 95 - Physical Exam General: Alert, In no apparent distress HEENT: Atraumatic, PERRLA, EOMI Neck: Supple, JVD not distended Respiratory: Clear to auscultation bilaterally, Normal air movement Cardiovascular: Regular rate/rhythm, Normal S1 S2 Gastrointestinal: Normal bowel sounds, No tenderness Musculoskeletal: No tenderness Integumentary: No rashes Neurological: Normal speech, Normal tone, Normal affect Lymphatics: No axilla or inguinal lymphadenopathy Assessment & Plan - Problems (Diagnosis) (1) Atrial fibrillation with RVR Current Visit: Yes Status: Acute Plan: will restart her metoprolol. Adjust it based on her heart rate. she has a minor elevation in her troponin. I do not believe this significant. However will follow her troponins. will have her seen by Cardiology. Will hold off on an echocardiogram. Dr. 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 She has an appointment with her at the end of the month. May decided to do an echo as an outpatient. 09/06 Patient on amiodarone and heparin. She had a troponin spike. Plans for cath today with Dr. Gregg (2) HTN (hypertension) Current Visit: Yes Status: Acute Plan: continue irbestartan Qualifiers: Hypertension type: essential hypertension Qualified Code(s): I10 - Essential (primary) hypertension (3) Hyperlipidemia Current Visit: Yes Status: Acute Plan: continue her atorvastatin. Will check her lipid profile as an outpatient Qualifiers: Hyperlipidemia type: moderate mixed hyperlipidemia not requiring statin therapy Qualified Code(s): E78.2 - Mixed hyperlipidemia (4) Acute renal failure Current Visit: Yes Status: Acute Plan: Most likely secondary to pre renal causes and contrast. There is a consult to Dr Judd. Agree with the increased fluids. Will continue to monitor the patient. Qualifiers: Acute renal failure type: unspecified Qualified Code(s): N17.9 - Acute kidney failure, unspecified (5) Protein calorie malnutrition Current Visit: Yes Status: Acute Plan: will order PT for the patient. Will need to continue the PT as an outpatient Qualifiers: Protein-calorie malnutrition severity: moderate Qualified Code(s): E44.0 - Moderate protein-calorie malnutrition Discharge Plan: Home Plan to discharge in: 48 Hours - Code Status/Comfort Care Code Status Assessed: No Physician Review: Patient Assessed, Agree with Above Assessment and Plan Critical Care: Yes Time Spent Managing Pts Care (In Minutes): 20
--- NOTE | 2020-09-07 19:15 | CON ---
Date of Consultation: 09/07/2020 Reason For Consultation: Elevated BUN and creatinine. History Of Present Illness: This is a pleasant 85-year-old female with significant past medical history of hyperlipidemia, hypertension, patient apparently visited her primary care her doctor for pleuritic chest pain, treated symptomatically. Then, the patient started having chest tightness with tachycardia. For that reason reported to the emergency room. Found to have atrial fibrillation with RVR. The patient also found to have non-ST elevation OH with congestive heart failure. Ejection fraction down to the 30. The patient underwent cardiac cath on the . Before she underwent the cardiac cath, her creatinine jumped from 0.9 with GFR of 59 to creatinine of 1.7 with GFR of 27. Today, repeated creatinine is 2.1 with GFR of 22. For that reason, we have been consulted. The patient denied taking any nonsteroidal. No IV contrast. Except the cardiac cath on the , both no antibiotic or IV contrast as outpatient. No nonsteroidal intake. Reviewing her medication, apparently the patient was on ARB, hydrochlorothiazide as outpatient. Past Medical History: Includes, 1. Hypertension. 2. Hyperlipidemia. 3. Atrial fibrillation. 4. Coronary artery disease status post non-ST elevation OH. Allergies: NO KNOWN DRUGS ALLERGY. Home Medications: Include, 1. Amlodipine. 2. Atorvastatin. 3. Plavix. 4. Irbesartan. 5. Hydrochlorothiazide. 6. Benzonatate. 7. Tamiflu. 8. Ambien. Past Surgical History: Includes cardiac cath. Social History: Denies smoking. Denies drinking. Denies drugs abuse. Review of Systems: Head and Neck: No red eye. No ear pain. GI: No nausea. No vomiting. : No polyuria. No dysuria. No hematuria. WELFARE INTERVIEWER: No vaginal discharge. Respiratory: Has chest tightness. Endocrine: No polydipsia. Skin: No rash. Neuro: Generalized weakness. Musculoskeletal: Fatigue. Physical Examination: Vital Signs: When I saw the patient, blood pressure 165/65, pulse of 85. The patient did not have any low blood pressure. The lowest is 112/56. Chest: Clear to auscultation. Heart: S1, S2. Systolic murmur. Abdomen: Soft, nontender. Extremities: No edema. Neurologic: Alert and oriented x3. No focal. Laboratory Data: Sodium 132, potassium 3.6, bicarb 21, BUN 18, creatinine 0.9, calcium 8.6, magnesium of 2. Troponin 3.3, alkaline phosphatase upon admission is 89. Albumin 2.6. Today lab data; sodium 126, potassium 4.2, bicarb 21, BUN 51, creatinine 2.1, GFR of 22, calcium 8.1. Urinalysis, WBC less than 5, specific gravity 1.025. PC ratio 0.9. Renal ultrasound on 03/11, increased echogenicity. Chest x-ray, cardiomegaly with congestion. Assessment And Plan: 1. Acute kidney injury, normal size kidney, proteinuric non-nephrotic mostly secondary to cardiorenal superimposed with hydrochlorothiazide, DEIDRE inhibitor, superimposed with contrast injury, nephropathy, currently normal volume. I am going to continue on IV hydration. I am going to give the patient another 2 doses of the Mucomyst even though there is no really supported data of its benefit, but given the worsening kidney function just to prevent any injury. 2. We will continue hydration. 3. I am going to go ahead and send for LDH and alkaline phosphatase to evaluate if the patient has any atheroembolic/embolic and we will send for complement and urine eosinophil. 4. I agree with holding DEIDRE inhibitor and hydrochlorothiazide. 5. Hyponatremia mostly secondary to hydrochlorothiazide induced. I agree with holding hydrochlorothiazide. We will send for TSH and uric acid and cortisol. Continue IV hydration. 6. Non-ST elevation myocardial infarction status post cardiac cath as above. 7. Followup by Cardiology. Thank you Dr. Gilmore for allowing us to participate in the care of your patient. time spent examined the patient face to face s discussed with the patient placed order discussing the case with other steam locomotive firer/fireman inculding nurses , discussing with other specialist include a hospitalist 75 min MELIDA Voice ID: [id number] Report ID: [id number] JOSE DE JESUS
[2020-09-07] MEDS: ACETYLCYST 20% 800 MG/4 ML VIAL PO SCH (21:30)
[2020-09-07] MEDS: CLOPIDOGREL 75 MG TABLET PO SCH (21:31)
[2020-09-07] MEDS: MORPHINE 2 MG/ML SYR IV PRN (21:33)
[2020-09-07] MEDS ORDERED: APIXABAN 5 MG TABLET ONE (21:39)
[2020-09-07] MEDS ORDERED: CLOPIDOGREL 75 MG TABLET ONE (21:39)
[2020-09-07] MEDS ORDERED: MORPHINE 2 MG/ML SYR ONE (21:45)
[2020-09-08] MEDS: NA CHLORIDE 0.9% 1,000 ML IV SCH ×2 (04:11→09:50)
[2020-09-08] MEDS: METOPROLOL XL 50 MG TAB PO SCH ×2 (05:15→18:20)
[2020-09-08] MEDS ORDERED: METOPROLOL XL 50 MG TAB PO ONE (05:31)
[2020-09-08 05:52] LABS: RBC Red Blood Cell Count 4.48 M/uL (3.86-4.86)
[2020-09-08] MEDS: ASPIRIN EC 81 MG TAB PO SCH (08:37)
[2020-09-08] MEDS: ACETYLCYST 20% 800 MG/4 ML VIAL PO SCH (08:37)
[2020-09-08] MEDS: APIXABAN 2.5 MG TABLET PO SCH ×2 (08:37→20:09)
[2020-09-08] MEDS: ATORVASTATIN 20 MG TAB PO SCH (08:37)
[2020-09-08] MEDS ORDERED: ASPIRIN EC 81 MG TAB PO ONE (08:47)
[2020-09-08] MEDS ORDERED: ATORVASTATIN 20 MG TAB ONE (08:47)
[2020-09-08] MEDS ORDERED: APIXABAN 5 MG TABLET ONE (08:48)
[2020-09-08] MEDS ORDERED: NA CHLORIDE 0.9% 1,000 ML ONE (10:02)
--- NOTE | 2020-09-08 14:25 | PN ---
Date of Progress Note: 09/08/2020 Subjective: The patient was admitted with non-ST elevation MS, AFib with RVR. The patient had acute kidney injury, prerenal, cardiorenal, secondary to poor perfusion, ATN, secondary to the AFib, superimposed with DEIDRE inhibitor and contrast. Physical Examination: Vital Signs: Blood pressure 160/66, pulse of 57, afebrile. The patient had good urine output of 1950. Chest: Faint crackles bilateral base, left more than the right. Heart: S1, S2. Regular. Abdomen: Soft, nontender. Extremities: Trace edema. Neurologic: Alert. No focality. Laboratory Data: Sodium 126, potassium 4.2, bicarb 21, BUN 51, creatinine 2.1 that is yesterday. Getting labs of today. Alkaline phosphatase is still pending. LDH is still pending. PTH 283, cortisol 46. Urine sodium 29, urine potassium 64, PC ratio 0.9. Current Medications: The patient on include aspirin, Eliquis, Plavix, atorvastatin, metoprolol 50 b.i.d., Ambien, IV fluids, normal saline at 100 per hour. Assessment And Plan: 1. Acute kidney injury, multifactorial, cardiorenal, poor perfusion, acute tubular necrosis secondary to the atrial fibrillation, superimposed with contrast induced, nonoliguric, slightly on the wet side. As the patient passed 48 hours after the contrast, I am going to discontinue the IV fluid, discontinue Mucomyst and we will monitor the patient. We will follow up chemistry today. Keep avoiding any DEIDRE inhibitor or ARB. 2. Hypertension, controlled, optimal. Keep avoiding DEIDRE inhibitor or ARB, holding diuresis. We will follow up. 3. Atrial fibrillation as by Cardiology. Still waiting for LDH and alkaline phosphatase to rule out any atheroembolic or embolic phenomenon. Follow up with Cardiology. Rate being controlled. 4. Non-ST elevation myocardial infarction as by Cardiology. time spent examined the patient face to face s discussed with the patient placed order discussing the case with other marine steamfitter inculding nurses , discussing with other specialist include a hospitalist 45 min MELIDA Voice ID: [id number] Report ID: [id number] [facility]
--- NOTE | 2020-09-08 15:10 | P.PN ---
Subjective Date of Service: 09/08/20 Primary Care Provider: Deirdre Chief Complaint: chest pain Subjective: No new changes Review of Systems 10-point ROS is otherwise unremarkable Gastrointestinal: Nausea Physical Examination - Vital Signs Temperature: 97.9 F Blood Pressure: 155/66 Pulse: 57 Respirations: 17 Pulse Ox (%): 98 - Physical Exam General: Alert, In no apparent distress HEENT: Atraumatic, PERRLA, EOMI Neck: Supple, JVD not distended Respiratory: Clear to auscultation bilaterally, Normal air movement Cardiovascular: Regular rate/rhythm, Normal S1 S2 Gastrointestinal: Normal bowel sounds, No tenderness Musculoskeletal: No tenderness Integumentary: No rashes Neurological: Normal speech, Normal tone, Normal affect Lymphatics: No axilla or inguinal lymphadenopathy Assessment & Plan - Problems (Diagnosis) (1) Acute renal failure Current Visit: Yes Status: Acute Plan: Most likely secondary to pre renal causes and contrast. There is a consult to Dr Judd. Agree with the increased fluids. Will continue to monitor the patient. 09/08 patient creatine is pending. Dr. Judd is waiting for the results of her creatine Will move her out of the unit and start PT on the patient. Qualifiers: Acute renal failure type: unspecified Qualified Code(s): N17.9 - Acute kidney failure, unspecified (2) Atrial fibrillation with RVR Current Visit: Yes Status: Acute Plan: will restart her metoprolol. Adjust it based on her heart rate. she has a minor elevation in her troponin. I do not believe this significant. However will follow her troponins. will have her seen by Cardiology. Will hold off on an echocardiogram. Dr. Pinedo is her regular lab support technician. She has an appointment with her at the end of the month. May decided to do an echo as an outpatient. 09/06 Patient on amiodarone and heparin. She had a troponin spike. Plans for cath today with Dr. Gregg (3) HTN (hypertension) Current Visit: Yes Status: Acute Plan: continue irbestartan Qualifiers: Hypertension type: essential hypertension Qualified Code(s): I10 - Essential (primary) hypertension (4) Hyperlipidemia Current Visit: Yes Status: Acute Plan: continue her atorvastatin. Will check her lipid profile as an outpatient Qualifiers: Hyperlipidemia type: moderate mixed hyperlipidemia not requiring statin therapy Qualified Code(s): E78.2 - Mixed hyperlipidemia (5) Protein calorie malnutrition Current Visit: Yes Status: Acute Plan: will order PT for the patient. Will need to continue the PT as an outpatient Qualifiers: Protein-calorie malnutrition severity: moderate Qualified Code(s): E44.0 - Moderate protein-calorie malnutrition Discharge Plan: Home Plan to discharge in: Greater than 2 days - Code Status/Comfort Care Code Status Assessed: No Physician Review: Patient Assessed, Agree with Above Assessment and Plan Critical Care: Yes Time Spent Managing Pts Care (In Minutes): 20
[2020-09-08] MEDS: ONDANSETRON 4 MG/2 ML VIAL IV PRN (16:29)
[2020-09-08] MEDS ORDERED: ONDANSETRON 4 MG/2 ML VIAL ONE (16:46)
[2020-09-08] MEDS: CLOPIDOGREL 75 MG TABLET PO SCH (20:09)
[2020-09-08] MEDS: MORPHINE 2 MG/ML SYR IV PRN (21:45)
--- NOTE | 2020-09-09 05:19 | EKG ---
Test Date: 2020-09-05 Test Time: 01:02:55 Carry Out Clerk: JASMYN MEASUREMENT RESULTS: Intervals: Rate: 131 ND: QRSD: 120 QT: 338 QTc: 499 [place]: P: ND: QRS: -33 T: 94 INTERPRETIVE STATEMENTS: Atrial fibrillation with rapid ventricular response Left axis deviation Anteroseptal infarct, age undetermined T wave abnormality, consider lateral ischemia or digitalis effect Abnormal ECG Compared to ECG 01/22/2016 23:04:22 Left-axis deviation now present T-wave abnormality now present Possible ischemia now present Sinus rhythm no longer present Ventricular premature complex(es) no longer present Myocardial infarct finding still present Electronically Signed On 09-09-20 05:12:12 ADVERTISING DISPATCH [employer]ERKS SUPERVISOR by Preston Pinedo
[2020-09-09] MEDS: METOPROLOL XL 50 MG TAB PO SCH ×2 (05:25→17:14)
[2020-09-09 07:00] LABS: Albumin 2.3 g/dL (3.4-5.0); Phosphorus 2.4 mg/dL (2.5-4.9); Potassium 3.5 mmol/L (3.5-5.1)
[2020-09-09] MEDS ORDERED: FUROSEMIDE 40 MG/4 ML VIAL IV ONE (07:51)
[2020-09-09] MEDS: ONDANSETRON 4 MG/2 ML VIAL IV PRN ×2 (08:57→19:52)
[2020-09-09] MEDS: ATORVASTATIN 20 MG TAB PO SCH (08:58)
[2020-09-09] MEDS: ASPIRIN EC 81 MG TAB PO SCH (08:58)
[2020-09-09] MEDS: APIXABAN 2.5 MG TABLET PO SCH ×2 (08:58→21:08)
--- NOTE | 2020-09-09 09:09 | P.PN ---
Subjective Date of Service: 09/09/20 Primary Care Provider: Deirdre Chief Complaint: chest pain Subjective: Improving Review of Systems 10-point ROS is otherwise unremarkable Gastrointestinal: Nausea Physical Examination - Vital Signs Temperature: 98.1 F Blood Pressure: 170/75 Pulse: 61 Respirations: 20 Pulse Ox (%): 98 - Physical Exam General: Alert, In no apparent distress HEENT: Atraumatic, PERRLA, EOMI Neck: Supple, JVD not distended Respiratory: Clear to auscultation bilaterally, Normal air movement Cardiovascular: Regular rate/rhythm, Normal S1 S2 Gastrointestinal: Normal bowel sounds, No tenderness Musculoskeletal: No tenderness Integumentary: No rashes Neurological: Normal speech, Normal tone, Normal affect Lymphatics: No axilla or inguinal lymphadenopathy Assessment & Plan - Problems (Diagnosis) (1) Acute renal failure Current Visit: Yes Status: Resolved Plan: Most likely secondary to pre renal causes and contrast. There is a consult to Dr Judd. Agree with the increased fluids. Will continue to monitor the patient. 09/09 creatine has improved. Will see if we can get her mobile and then start planning for discharge Qualifiers: Acute renal failure type: unspecified Qualified Code(s): N17.9 - Acute kidney failure, unspecified (2) Atrial fibrillation with RVR Current Visit: Yes Status: Acute Plan: will restart her metoprolol. Adjust it based on her heart rate. she has a minor elevation in her troponin. I do not believe this significant. However will follow her troponins. will have her seen by Cardiology. Will hold off on an echocardiogram. Dr. Pinedo is her regular tunnel mucker. She has an appointment with her at the end of the month. May decided to do an echo as an outpatient. 09/06 Patient on amiodarone and heparin. She had a troponin spike. Plans for cath today with Dr. Gregg (3) HTN (hypertension) Current Visit: Yes Status: Acute Plan: continue irbestartan Qualifiers: Hypertension type: essential hypertension Qualified Code(s): I10 - Essential (primary) hypertension (4) Hyperlipidemia Current Visit: Yes Status: Acute Plan: continue her atorvastatin. Will check her lipid profile as an outpatient Qualifiers: Hyperlipidemia type: moderate mixed hyperlipidemia not requiring statin therapy Qualified Code(s): E78.2 - Mixed hyperlipidemia (5) Protein calorie malnutrition Current Visit: Yes Status: Acute Plan: will order PT for the patient. Will need to continue the PT as an outpatient Qualifiers: Protein-calorie malnutrition severity: moderate Qualified Code(s): E44.0 - Moderate protein-calorie malnutrition Discharge Plan: Home Plan to discharge in: 24 Hours - Code Status/Comfort Care Code Status Assessed: No Physician Review: Patient Assessed, Agree with Above Assessment and Plan Critical Care: No Time Spent Managing Pts Care (In Minutes): 25
--- NOTE | 2020-09-09 09:09 | RAD REPORT ---
EXAM DESCRIPTION: RAD - Chest Single View - 09/09/2020 8:52 am CLINICAL HISTORY: COPD COMPARISON: Portable September 05 TECHNIQUE: AP portable chest image was obtained 09/09/2020 8:52 am . FINDINGS: Lung volumes reduced since prior imaging. Bilateral pleural effusions are present along wi th bilateral lung base atelectasis. Cardiomegaly is present similar comparison. No vascular engorgeme nt. Mild baseline prominence of the interstitial pattern noted. No pneumothorax. No acute bony abnorm ality seen. No acute aortic findings suspected. IMPRESSION: Bilateral pleural effusions and lung base atelectasis noted with pleural fluid appearing slightly larger than comparison. Cardiomegaly without vascular engorgement.
[2020-09-09] MEDS: SODIUM CHLORIDE 1 GM TAB PO SCH (17:14)
--- NOTE | 2020-09-09 20:14 | PN ---
Date of Progress Note: 09/09/2020 Subjective: The patient was admitted with atrial fibrillation with RVR, [id number] [place]. The patient undergo cardiac cath. The patient had acute kidney injury secondary to prerenal, poor perfusion, ATN secondary to the atrial fibrillation. The patient had the contrast with cardiac cath. Kidney function worsening. After hydration, kidney number is trending down, currently normalized. Physical Examination: Vital Signs: Blood pressure 173/70, pulse of 54, afebrile. Chest: Faint crackles on the left base. Heart: S1, S2. Regular. Abdomen: Soft, nontender. Extremities: No edema. Neurologic: Alert. No focality. Laboratory Data: WBC 11.2, H and H 11.9/35.9, platelets 334. Sodium 125, potassium 3.5, bicarb 23, BUN 18, creatinine 0.8, calcium 7.8, phosphorus 2.5. Serum protein electrophoresis is still pending. PTH 282. Cortisol 46. Urinalysis with specific gravity of 1.025, urine sodium 29, urine potassium 64. Current Medications: The patient on include: 1. Aspirin. 2. Nitrofurantoin. 3. Plavix. 4. Metoprolol 50 b.i.d. 5. Atorvastatin. 6. Zofran. Assessment And Plan: 1. Acute kidney injury secondary to poor perfusion, acute tubular necrosis/contrast-induced nephropathy, resolved. 2. Hypertension, controlled, not optimal. I am going to go ahead and increase her metoprolol to 100 given the history of atrial fibrillation and we will monitor the patient. 3. Hyponatremia, secondary to possible syndrome of inappropriate antidiuretic hormone, supported with urine electrolyte. I am going to go ahead and send for uric acid. We will start the patient on salt tablet and Lasix, and we will follow up the patient. 4. Atrial fibrillation with rapid ventricular response, rate being controlled. Follow up with Cardiology. 5. [id number] myocardial infarction, status post cardiac cath. We will follow up with Cardiology. time spent examined the patient face to face s discussed with the patient placed order discussing the case with other environmental field team member inculding nurses , discussing with other specialist include a hospitalist 45 min MELIDA Voice ID: [id number] Report ID: [id number] [facility]
[2020-09-09] MEDS: NITROFURAN MACRO 100 MG CAP PO SCH (21:08)
[2020-09-09] MEDS: CLOPIDOGREL 75 MG TABLET PO SCH (21:08)
[2020-09-10 00:08] LABS: Albumin 2.4 g/dL (3.4-5.0); Alkaline Phosphatase 110 U/L (45-117); BUN Blood Urea Nitrogen 34 mg/dL (7-18); Bicarbonate 22 mmol/L (21-32); Creatine Phosphokinase 82 U/L (26-192); Glucose Level 102 mg/dL (74-106); Phosphorus 3.5 mg/dL (2.5-4.9); Sodium Level 124 mmol/L (136-145); Uric Acid 6.9 mg/dL (2.6-6.0)
[2020-09-10 02:09] LABS: Folic Acid, (Folate) 16.2 ng/mL (3.1-17.5); Transferrin 149 mg/dL (200-360)
[2020-09-10 02:13] LABS: Ferritin 16924.3 ng/mL (8-388)
[2020-09-10 05:56] LABS: Albumin 2.4 g/dL (3.4-5.0); Phosphorus 1.9 mg/dL (2.5-4.9); Potassium 3.8 mmol/L (3.5-5.1); Uric Acid 4.4 mg/dL (2.6-6.0)
[2020-09-10] MEDS: METOPROLOL XL 50 MG TAB PO SCH ×2 (06:07→18:00)
[2020-09-10] MEDS: NITROFURAN MACRO 100 MG CAP PO SCH ×2 (08:56→21:31)
[2020-09-10] MEDS: APIXABAN 2.5 MG TABLET PO SCH ×2 (08:56→21:31)
[2020-09-10] MEDS: SODIUM CHLORIDE 1 GM TAB PO SCH ×3 (08:56→21:35)
[2020-09-10] MEDS: ASPIRIN EC 81 MG TAB PO SCH (08:56)
[2020-09-10] MEDS: ATORVASTATIN 20 MG TAB PO SCH (08:56)
[2020-09-10] MEDS ORDERED: LACTULOSE 20 GM/30 ML UCUP PO ONE (10:29)
--- NOTE | 2020-09-10 10:36 | P.PN ---
Subjective Date of Service: 09/10/20 Primary Care Provider: Deirdre Chief Complaint: chest pain nursing reports the patient has not had a bowel movement since admission. She has been having nause for the past 2 days Review of Systems 10-point ROS is otherwise unremarkable Gastrointestinal: Nausea, Constipation Physical Examination - Vital Signs Temperature: 97.4 F Blood Pressure: 193/86 Pulse: 65 Respirations: 16 Pulse Ox (%): 95 - Physical Exam General: Alert, In no apparent distress HEENT: Atraumatic, PERRLA, EOMI Neck: Supple, JVD not distended Respiratory: Clear to auscultation bilaterally, Normal air movement Cardiovascular: Regular rate/rhythm, Normal S1 S2 Gastrointestinal: Normal bowel sounds, No tenderness Musculoskeletal: No tenderness Integumentary: No rashes Neurological: Normal speech, Normal tone, Normal affect Lymphatics: No axilla or inguinal lymphadenopathy Assessment & Plan - Problems (Diagnosis) (1) Acute renal failure Current Visit: Yes Status: Resolved Plan: Most likely secondary to pre renal causes and contrast. There is a consult to Dr Judd. Agree with the increased fluids. Will continue to monitor the patient. 09/10 she is still hyponatremic. Will see if Dr Jones will continue the salt tablets. Her kidney function has improved Qualifiers: Acute renal failure type: unspecified Qualified Code(s): N17.9 - Acute kidney failure, unspecified (2) Atrial fibrillation with RVR Current Visit: Yes Status: Acute Plan: will restart her metoprolol. Adjust it based on her heart rate. she has a minor elevation in her troponin. I do not believe this significant. However will follow her troponins. will have her seen by Cardiology. Will hold off on an echocardiogram. Dr. Pinedo is her regular fagoter. She has an appointment with her at the end of the month. May decided to do an echo as an outpatient. 09/06 Patient on amiodarone and heparin. She had a troponin spike. Plans for cath today with Dr. Gregg (3) HTN (hypertension) Current Visit: Yes Status: Acute Plan: continue irbestartan Qualifiers: Hypertension type: essential hypertension Qualified Code(s): I10 - Essential (primary) hypertension (4) Hyperlipidemia Current Visit: Yes Status: Acute Plan: continue her atorvastatin. Will check her lipid profile as an outpatient Qualifiers: Hyperlipidemia type: moderate mixed hyperlipidemia not requiring statin therapy Qualified Code(s): E78.2 - Mixed hyperlipidemia (5) Protein calorie malnutrition Current Visit: Yes Status: Acute Plan: will order PT for the patient. Will need to continue the PT as an outpatient Qualifiers: Protein-calorie malnutrition severity: moderate Qualified Code(s): E44.0 - Moderate protein-calorie malnutrition (6) Constipation Current Visit: Yes Status: Acute Plan: would explain the constipation. Will start her on ducloax. Continue ambulating the patent. If she does not have a bowel movement. Will try a one time dose of lactulose. Qualifiers: Constipation type: unspecified constipation type Qualified Code(s): K59.00 - Constipation, unspecified Discharge Plan: Home Plan to discharge in: 24 Hours - Code Status/Comfort Care Code Status Assessed: No Physician Review: Patient Assessed, Agree with Above Assessment and Plan Critical Care: No Time Spent Managing Pts Care (In Minutes): 20
[2020-09-10] MEDS: BISACODYL 10 MG RECTAL SUPP PR PRN ×2 (12:06→21:31)
[2020-09-10] MEDS: FUROSEMIDE 20 MG TABLET PO SCH (13:32)
--- NOTE | 2020-09-10 13:51 | P.PN ---
Subjective Date of Service: 09/10/20 Primary Care Provider: Deirdre Chief Complaint: chest pain Subjective pt admitted with chest discomfort , Afib , had ALMA improved after IVF now pt have hyponatremia today Sodium down to 121 will increase salt tabelts to 2gm tid fluid restriction , will add lasix if no improvement then will add tolavaptan Physical exam general: Awake , in moderate distress Neck; Supple, No elevated JVD hear: RRR, normal S1,2 no murmur or rub Chest: Basal rales Abdomen: Soft , Nt Extremities No edema or ulcer A/P Hyponatremia possibly SIAD Uric acid 4.4 , TSH and cortisol wnl will increase salt tabelts to 2gm tid fluid restriction , will add lasix if no improvement then will add tolavaptan HTN Cont current meds NSTEMI S/p cardica cath cardiology following Afib currently rate controlled total time spent 45min Physical Examination - Vital Signs Temperature: 97.4 F Blood Pressure: 186/75 Pulse: 55 Respirations: 16 Pulse Ox (%): 95 Assessment And Plan Physician Review: Patient Assessed, Agree with Above Assessment and Plan
[2020-09-10 14:15] LABS: Albumin 2.8 g/dL (3.4-5.0); Bilirubin Total 0.8 mg/dL (0.2-1.0); Potassium 3.9 mmol/L (3.5-5.1); Protein, Total 6.3 g/dL (6.4-8.2)
[2020-09-10] MEDS ORDERED: LACTULOSE 20 GM/30 ML UCUP PO PRN (16:03)
[2020-09-10 19:39] LABS: Hepatitis C Virus RNA (PCR)log <1.18 log IU/mL
[2020-09-10] MEDS: CLOPIDOGREL 75 MG TABLET PO SCH (21:31)
[2020-09-10] MEDS: LACTULOSE 20 GM/30 ML UCUP PO SCH (21:31)
[2020-09-11] MEDS ORDERED: HYDRALAZINE HCL 20 MG/ML VIAL IV ONE (05:38)
[2020-09-11] MEDS: METOPROLOL XL 50 MG TAB PO SCH ×2 (05:39→17:44)
[2020-09-11 06:47] LABS: Albumin 2.8 g/dL (3.4-5.0); Bilirubin Direct 0.4 mg/dL (0-0.2); Bilirubin Total 0.7 mg/dL (0.2-1.0); CKMB Creatine Kinase MB 2.9 ng/mL (0.3-3.6); Phosphorus 1.8 mg/dL (2.5-4.9); Potassium 3.6 mmol/L (3.5-5.1)
[2020-09-11] MEDS: SODIUM CHLORIDE 1 GM TAB PO SCH ×3 (08:35→21:16)
[2020-09-11] MEDS: NITROFURAN MACRO 100 MG CAP PO SCH ×2 (08:35→21:15)
[2020-09-11] MEDS: LACTULOSE 20 GM/30 ML UCUP PO SCH ×2 (08:35→21:17)
[2020-09-11] MEDS: ASPIRIN EC 81 MG TAB PO SCH (08:36)
[2020-09-11] MEDS: FUROSEMIDE 20 MG TABLET PO SCH (08:36)
[2020-09-11] MEDS: APIXABAN 2.5 MG TABLET PO SCH ×2 (08:36→21:16)
--- NOTE | 2020-09-11 10:20 | P.PN ---
Subjective Date of Service: 09/11/20 Primary Care Provider: Deirdre Chief Complaint: chest pain Subjective: No new changes had small bowel movements. Still hypernatremic. She had elevated liver enzymes which are trending down. Review of Systems Gastrointestinal: Nausea, Abdominal Pain, Constipation Physical Examination - Vital Signs Temperature: 97.6 F Blood Pressure: 175/67 Pulse: 59 Respirations: 16 Pulse Ox (%): 94 - Physical Exam General: Alert, In no apparent distress HEENT: Atraumatic, PERRLA, EOMI Neck: Supple, JVD not distended Respiratory: Clear to auscultation bilaterally, Normal air movement Cardiovascular: Regular rate/rhythm, Normal S1 S2 Gastrointestinal: Normal bowel sounds, No tenderness Musculoskeletal: No tenderness Integumentary: No rashes Neurological: Normal speech, Normal tone, Normal affect Lymphatics: No axilla or inguinal lymphadenopathy Assessment & Plan - Problems (Diagnosis) (1) Acute renal failure Current Visit: Yes Status: Resolved Plan: Most likely secondary to pre renal causes and contrast. There is a consult to Dr Judd. Agree with the increased fluids. Will continue to monitor the patient. 09/11 she is still hyponatremic. continue salt tablets. Will give her a little bit of normal saline as the creatine is a bit elevated today. Will wait on the nephrology report. Qualifiers: Acute renal failure type: unspecified Qualified Code(s): N17.9 - Acute kidney failure, unspecified (2) Atrial fibrillation with RVR Current Visit: Yes Status: Acute Plan: will restart her metoprolol. Adjust it based on her heart rate. she has a minor elevation in her troponin. I do not believe this significant. However will follow her troponins. will have her seen by Cardiology. Will hold off on an echocardiogram. Dr. Pinedo is her regular event security officer. She has an appointment with her at the end of the month. May decided to do an echo as an outpatient. 09/06 Patient on amiodarone and heparin. She had a troponin spike. Plans for cath today with Dr. Gregg (3) HTN (hypertension) Current Visit: Yes Status: Acute Plan: continue irbestartan Qualifiers: Hypertension type: essential hypertension Qualified Code(s): I10 - Essential (primary) hypertension (4) Hyperlipidemia Current Visit: Yes Status: Acute Plan: continue her atorvastatin. Will check her lipid profile as an outpatient Qualifiers: Hyperlipidemia type: moderate mixed hyperlipidemia not requiring statin ther apy Qualified Code(s): E78.2 - Mixed hyperlipidemia (5) Protein calorie malnutrition Current Visit: Yes Status: Acute Plan: will order PT for the patient. Will need to continue the PT as an outpatient Qualifiers: Protein-calorie malnutrition severity: moderate Qualified Code(s): E44.0 - Moderate protein-calorie malnutrition (6) Constipation Current Visit: Yes Status: Acute Plan: would explain the constipation. Will start her on ducloax. Continue ambulating the patent. If she does not have a bowel movement. Will try a one time dose of lactulose. 09/11 She has some elevated liver enzymes which are trending downwards. Will increase her lactulose. have offered enemas. She has not had a good bowel movement. Is also not eating due to nausea. Qualifiers: Constipation type: unspecified constipation type Qualified Code(s): K59.00 - Constipation, unspecified Discharge Plan: Home - Code Status/Comfort Care Code Status Assessed: No Physician Review: Patient Assessed, Agree with Above Assessment and Plan Critical Care: No Time Spent Managing Pts Care (In Minutes): 20
--- NOTE | 2020-09-11 10:32 | RAD REPORT ---
EXAM DESCRIPTION: RAD - Chest Single View - 09/11/2020 5:58 am CLINICAL HISTORY: SOB Chest pain. COMPARISON: Chest Single View dated 09/09/2020; Chest Single View dated 09/05/2020; Chest Single View d ated 01/22/2016; CHEST SINGLE VIEW dated 08/25/2012 FINDINGS: Portable technique limits examination quality. There has been mild worsening in the right lung base aeration seen since the comparative study. Small bilateral pleural effusions are seen. The heart is moderately enlarged in size. No displaced fractur es. IMPRESSION: Mild worsening in right lung base aeration since comparative study.
[2020-09-11] MEDS ORDERED: NA CHLORIDE 0.9% 500 ML IV SCH (11:00)
[2020-09-11] MEDS ORDERED: NA CHLORIDE 0.9% 1,000 ML IV SCH (11:00)
[2020-09-11] MEDS: NA CHLORIDE 0.9% 1,000 ML IV SCH (17:45)
--- NOTE | 2020-09-11 17:47 | P.PN ---
Subjective Date of Service: 09/11/20 Primary Care Provider: Deirdre Chief Complaint: chest pain Subjective pt admitted with chest discomfort , Afib , had ALMA improved after IVF now pt have hyponatremia today feels better off statin due to elevated LFT CXR with mild congestion low urine sodium , will start gentle IVF if no improvement in sodium level tomorrow, then will insert PICC line , move to ICU and start Hypertonic saline Physical exam general: Awake , in moderate distress Neck; Supple, No elevated JVD hear: RRR, normal S1,2 no murmur or rub Chest: Basal rales Abdomen: Soft , Nt Extremities No edema or ulcer A/P Hyponatremia possibly SIAD Uric acid 4.4 , TSH and cortisol wnl Salt, tabelts to 2gm tid and lasix low urine sodium , will start gentle IVF if no improvement in sodium level tomorrow, then will insert PICC line , move to ICU and start Hypertonic saline will hold on [place] for now due to elevated LFT HTN Cont current meds NSTEMI S/p cardica cath cardiology following Afib currently rate controlled total time spent 45min Physical Examination - Vital Signs Temperature: 98.6 F Blood Pressure: 177/74 Pulse: 76 Respirations: 18 Pulse Ox (%): 94 Assessment And Plan Physician Review: Patient Assessed, Agree with Above Assessment and Plan
[2020-09-11] MEDS: CLOPIDOGREL 75 MG TABLET PO SCH (21:16)
[2020-09-11] MEDS: ONDANSETRON 4 MG/2 ML VIAL IV PRN (23:51)
[2020-09-11 23:55] LABS: Vitamin D 1,25-Dihydroxy Total 26 pg/mL (18-72); Vitamin D,1,25-OH2, D2 <8 pg/mL
[2020-09-12] MEDS: NA CHLORIDE 0.9% 1,000 ML IV SCH (03:34)
[2020-09-12 05:19] LABS: Albumin 2.8 g/dL (3.4-5.0); Bilirubin Direct 0.3 mg/dL (0-0.2); Bilirubin Total 0.6 mg/dL (0.2-1.0); Potassium 3.2 mmol/L (3.5-5.1); Protein, Total 5.7 g/dL (6.4-8.2)
[2020-09-12 05:26] LABS: Albumin 2.7 g/dL (3.4-5.0); Phosphorus 2.1 mg/dL (2.5-4.9); Potassium 3.2 mmol/L (3.5-5.1)
[2020-09-12] MEDS: METOPROLOL XL 50 MG TAB PO SCH ×2 (05:44→18:09)
[2020-09-12] MEDS ORDERED: MORPHINE 2 MG/ML SYR IV ONE (06:29)
[2020-09-12] MEDS ORDERED: HYDRALAZINE HCL 20 MG/ML VIAL IV PRN (06:49)
[2020-09-12] MEDS: FUROSEMIDE 20 MG TABLET PO SCH (09:11)
[2020-09-12] MEDS: SODIUM CHLORIDE 1 GM TAB PO SCH ×3 (09:13→21:53)
[2020-09-12] MEDS: ASPIRIN EC 81 MG TAB PO SCH (09:15)
[2020-09-12] MEDS: NITROFURAN MACRO 100 MG CAP PO SCH ×2 (09:16→21:53)
[2020-09-12] MEDS: APIXABAN 2.5 MG TABLET PO SCH ×2 (09:18→21:54)
[2020-09-12] MEDS: LACTULOSE 20 GM/30 ML UCUP PO SCH ×2 (09:20→21:54)
--- NOTE | 2020-09-12 12:26 | P.PN ---
Subjective Date of Service: 09/12/20 Primary Care Provider: Deirdre Chief Complaint: chest pain patient is hyponatremic. Confused and scared. Review of Systems General: Weakness, Malaise Cardiovascular: Edema (slight) Gastrointestinal: Distention Physical Examination - Vital Signs Temperature: 96.8 F Blood Pressure: 156/89 Pulse: 71 Respirations: 24 Pulse Ox (%): 90 - Physical Exam General: Alert, In no apparent distress HEENT: Atraumatic, PERRLA, EOMI Neck: Supple, JVD not distended Respiratory: Clear to auscultation bilaterally, Normal air movement Cardiovascular: Regular rate/rhythm, Normal S1 S2, Edema (very mild. But also in the sacral area) Gastrointestinal: Normal bowel sounds, No tenderness Musculoskeletal: No tenderness Integumentary: No rashes Neurological: Normal speech, Normal tone, Normal affect Lymphatics: No axilla or inguinal lymphadenopathy Assessment & Plan - Problems (Diagnosis) (1) Hyponatremia Current Visit: Yes Status: Acute Plan: Patient is not delirious. However not as sharp as her baseline. Have discussed the patient with Dr. Vázquez. We examined her together. The patient now has a kaiser due to retention. Will switch her lasix to iv and start bid. Dr. Vázquez also suggested a head ct to rule out any tumors that could be causing SIADH. (2) Acute renal failure Current Visit: Yes Status: Resolved Plan: Most likely secondary to pre renal causes and contrast. There is a consult to Dr Judd. Agree with the increased fluids. Will continue to monitor the patient. 09/12 Still hyponatremic. Normal kidney function. I believe the hyponatremia is causing her symptoms. Agree with Dr. Vázquez. Will consider putting a picc line and hypertonic saline in the morning if she does not improve with Lasix. Qualifiers: Acute renal failure type: unspecified Qualified Code(s): N17.9 - Acute kidney failure, unspecified (3) Atrial fibrillation with RVR Current Visit: Yes Status: Acute Plan: will restart her metoprolol. Adjust it based on her heart rate. she has a minor elevation in her troponin. I do not believe this significant. However will follow her troponins. will have her seen by Cardiology. Will hold off on an echocardiogram. Dr. Pinedo is her regular aircraft ordnance systems mechanic. She has an appointment with her at the end of the month. May decided to do an echo as an outpatient. 09/06 Patient on amiodarone and heparin. She had a troponin spike. Plans for cath today with Dr. Gregg (4) HTN (hypertension) Current Visit: Yes Status: Acute Plan: continue irbestartan Qualifiers: Hypertension type: essential hypertension Qualified Code(s): I10 - Essential (primary) hypertension (5) Hyperlipidemia Current Visit: Yes Status: Acute Plan: continue her atorvastatin. Will check her lipid profile as an outpatient Qualifiers: Hyperlipidemia type: moderate mixed hyperlipidemia not requiring statin therapy Qualified Code(s): E78.2 - Mixed hyperlipidemia (6) Protein calorie malnutrition Current Visit: Yes Status: Acute Plan: will order PT for the patient. Will need to continue the PT as an outpatient Qualifiers: Protein-calorie malnutrition severity: moderate Qualified Code(s): E44.0 - Moderate protein-calorie malnutrition (7) Constipation Current Visit: Yes Status: Acute Plan: would explain the constipation. Will start her on ducloax. Continue ambulating the patent. If she does not have a bowel movement. Will try a one time dose of lactulose. 09/11 She has some elevated liver enzymes which are trending downwards. Will increase her lactulose. have offered enemas. She has not had a good bowel movement. Is also not eating due to nausea. Qualifiers: Constipation type: unspecified constipation type Qualified Code(s): K59.00 - Constipation, unspecified Discharge Plan: Home Plan to discharge in: Greater than 2 days - Code Status/Comfort Care Code Status Assessed: No Physician Review: Patient Assessed, Agree with Above Assessment and Plan Critical Care: No Time Spent Managing Pts Care (In Minutes): 30
--- NOTE | 2020-09-12 12:54 | P.PN ---
Subjective Date of Service: 09/12/20 Primary Care Provider: Deirdre Chief Complaint: chest pain Subjective pt admitted with chest discomfort , Afib , had ALMA improved after IVF now pt have hyponatremia started on salt tbalet 2gm tis , with po lasix, no improvement in sodiu , then pt started on IVF ,now slightly fluid overload today No change in clinical status , slightly confused Orantes inserted , monitor I/O off satin due to elevated LFT CXR with mild congestion , will start IV lasix low urine sodium , will start gentle IVF if no improvement in sodium level tomorrow, then will insert PICC line , move to ICU and start Hypertonic saline Physical exam general: Awake , in moderate distress Neck; Supple, No elevated JVD hear: RRR, normal S1,2 no murmur or rub Chest: Basal rales Abdomen: Soft , Nt Extremities No edema or ulcer A/P Hyponatremia possibly SIAD Uric acid 4.4 , TSH and cortisol wnl Salt, tablets to 2gm will change lasix to IV low urine sodium , will start gentle IVF if no improvement in sodium level tomorrow, then will insert PICC line , move to ICU and start Hypertonic saline will hold on [place] for now due to elevated LFT HTN Cont current meds NSTEMI S/p cardica cath cardiology following eleavted LFT unclear etiology improving F/U hep panel , will order abd US off statin Afib currently rate controlled total time spent 45min Physical Examination - Vital Signs Temperature: 96.8 F Blood Pressure: 156/89 Pulse: 71 Respirations: 24 Pulse Ox (%): 90 Assessment And Plan Physician Review: Patient Assessed, Agree with Above Assessment and Plan
[2020-09-12] MEDS ORDERED: FUROSEMIDE 40 MG/4 ML VIAL IV ONE (13:00)
--- NOTE | 2020-09-12 14:48 | RAD REPORT ---
EXAM DESCRIPTION: CT - CTHCSPWOC - 09/12/2020 2:41 pm CLINICAL HISTORY: confusion COMPARISON: Chest Single View dated 09/11/2020 TECHNIQUE: Axial 5 mm thick images of the head were obtained. Axial 2 mm thick images of the cervic al spine were obtained with sagittal and coronal reconstruction images generated and reviewed. All CT scans are performed using dose optimization technique as appropriate and may include automated exposure control or mA/KV adjustment according to patient size. FINDINGS: No intracranial hemorrhage, mass, edema or acute intracranial finding. No suspicion for ac [place] infarction. No cortical edema or sulcal effacement. Mild for age atrophy and chronic ischemic juancarlos nges are present. Ventricles are in proportion. Mastoid air cells and paranasal sinuses are clear. No globe or orbit abnormality seen. Cervical bodies are normal in height. Very minimal anterior subluxation of C3 on C4 due to facet dege nerative change. C4-5, C5-6 and C6-7 disc space narrowing and endplate spurring changes are present. Bony foraminal encroachment changes are present on the right at C4-5 and bilateral at C5-6. No fractu re or acute bony abnormality. Central canal detail is inherently limited. No paraspinal mass or hematoma. Bilateral pleural effusions are present only partially imaged. IMPRESSION: Mild atrophy and chronic ischemic changes are present. Ventricles are in proportion. No acute intracranial finding identifiable. Cervical spine degenerative change as detailed. No acute finding. Bilateral pleural effusions only partially evaluated.
[2020-09-12 15:41] VITALS: O2SAT 90
--- NOTE | 2020-09-12 20:06 | RAD REPORT ---
EXAM DESCRIPTION: US - Abdomen Exam Limited - 09/12/2020 7:39 pm CLINICAL HISTORY: elevatd liver function test COMPARISON: Renal Ultrasound-Complete dated 09/07/2020 FINDINGS: Several small sub centimeter mobile gallstones identified. No wall thickening or perichole cystic fluid. No gallbladder mass. No common duct stone or biliary tree dilatation identified. IMPRESSION: Several small mobile gallstones. No other gallbladder or biliary tree abnormality.
[2020-09-12] MEDS: CLOPIDOGREL 75 MG TABLET PO SCH (21:54)
[2020-09-12] MEDS: FUROSEMIDE 40 MG/4 ML VIAL IV SCH (21:54)
[2020-09-12 22:48] LABS: Albumin, (SPE) 2.5 g/dL (3.8-4.8); Alpha-1-Globulins 0.6 g/dL (0.2-0.3); Gamma Globulins 0.6 g/dL (0.8-1.7); INTERPRETATION REPORT
[2020-09-13 03:31] LABS: HBsAG Nonreactive (Nonreactive)
[2020-09-13 06:26] LABS: Albumin 2.8 g/dL (3.4-5.0)
[2020-09-13 06:34] LABS: Potassium 2.6 mmol/L (3.5-5.1)
[2020-09-13] MEDS: METOPROLOL XL 50 MG TAB PO SCH ×2 (06:42→17:17)
[2020-09-13] MEDS: ONDANSETRON 4 MG/2 ML VIAL IV PRN (06:44)
[2020-09-13] MEDS: LACTULOSE 20 GM/30 ML UCUP PO SCH ×3 (09:16→22:24)
[2020-09-13] MEDS: FUROSEMIDE 40 MG/4 ML VIAL IV SCH ×2 (09:16→22:24)
[2020-09-13] MEDS: APIXABAN 2.5 MG TABLET PO SCH ×2 (09:18→21:00)
[2020-09-13] MEDS: ASPIRIN EC 81 MG TAB PO SCH (09:18)
[2020-09-13] MEDS: SODIUM CHLORIDE 1 GM TAB PO SCH ×3 (09:20→22:24)
[2020-09-13] MEDS ORDERED: POTASSIUM 25 MEQ EFFERV TAB PO ONE (12:02)
[2020-09-13] MEDS ORDERED: POTASSIUM CL 40 MEQ in NA CHLORIDE 0.9% 500 ML IV SCH (14:00)
--- NOTE | 2020-09-13 14:37 | P.PN ---
Subjective Date of Service: 09/13/20 Primary Care Provider: Deirdre Chief Complaint: chest pain Patient seems a bit stronger today. She has improved sodium, potassium is decreased. Review of Systems 10-point ROS is otherwise unremarkable General: Weakness Physical Examination - Vital Signs Temperature: 98.1 F Blood Pressure: 148/63 Pulse: 60 Respirations: 18 Pulse Ox (%): 93 - Physical Exam General: Alert, In no apparent distress HEENT: Atraumatic, PERRLA, EOMI Neck: Supple, JVD not distended Respiratory: Clear to auscultation bilaterally, Normal air movement Cardiovascular: Regular rate/rhythm, Normal S1 S2 Gastrointestinal: Normal bowel sounds, No tenderness Musculoskeletal: No tenderness Integumentary: No rashes Neurological: Normal speech, Normal tone, Normal affect Lymphatics: No axilla or inguinal lymphadenopathy Assessment & Plan - Problems (Diagnosis) (1) Hyponatremia Current Visit: Yes Status: Acute Plan: Patient is doing better. Sodium is improved. She has hypokalemia. I have spoken to Dr. Deshpande. He feels she will improve with potassium replacement which will help the sodium. Will check a bmp this evening. With further improvement we may be able to discharge home in the evening or tomorrow morning. family asked to meet. Have spent 20 min with them explaining the patients hospital course. Have given them the office phone. They can call me with any further problems (2) Acute renal failure Current Visit: Yes Status: Resolved Plan: Most likely secondary to pre renal causes and contrast. There is a consult to Dr Judd. Agree with the increased fluids. Will continue to monitor the patient. 09/12 Still hyponatremic. Normal kidney function. I believe the hyponatremia is causing her symptoms. Agree with Dr. Vázquez. Will consider putting a picc line and hypertonic saline in the morning if she does not improve with Lasix. Qualifiers: Acute renal failure type: unspecified Qualified Code(s): N17.9 - Acute kidney failure, unspecified (3) Atrial fibrillation with RVR Current Visit: Yes Status: Acute Plan: will restart her metoprolol. Adjust it based on her heart rate. she has a minor elevation in her troponin. I do not believe this significant. However will follow her troponins. will have her seen by Cardiology. Will hold off on an echocardiogram. 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 She has an appointment with her at the end of the month. May decided to do an echo as an outpatient. 09/06 Patient on amiodarone and heparin. She had a troponin spike. Plans for cath today with Dr. Gregg (4) HTN (hypertension) Current Visit: Yes Status: Acute Plan: continue irbestartan Qualifiers: Hypertension type: essential hypertension Qualified Code(s): I10 - Essential (primary) hypertension (5) Hyperlipidemia Current Visit: Yes Status: Acute Plan: continue her atorvastatin. Will check her lipid profile as an outpatient Qualifiers: Hyperlipidemia type: moderate mixed hyperlipidemia not requiring statin therapy Qualified Code(s): E78.2 - Mixed hyperlipidemia (6) Protein calorie malnutrition Current Visit: Yes Status: Acute Plan: will order PT for the patient. Will need to continue the PT as an outpatient Qualifiers: Protein-calorie malnutrition severity: moderate Qualified Code(s): E44.0 - Moderate protein-calorie malnutrition (7) Constipation Current Visit: Yes Status: Acute Plan: would explain the constipation. Will start her on ducloax. Continue ambulating the patent. If she does not have a bowel movement. Will try a one time dose of lactulose. 09/11 She has some elevated liver enzymes which are trending downwards. Will increase her lactulose. have offered enemas. She has not had a good bowel movement. Is also not eating due to nausea. Qualifiers: Constipation type: unspecified constipation type Qualified Code(s): K59.00 - Constipation, unspecified Discharge Plan: Home Plan to discharge in: 24 Hours - Code Status/Comfort Care Code Status Assessed: No Physician Review: Patient Assessed, Agree with Above Assessment and Plan Critical Care: Yes Time Spent Managing Pts Care (In Minutes): 30
[2020-09-13 17:50] LABS: Potassium 3.9 mmol/L (3.5-5.1)
[2020-09-13] MEDS: CLOPIDOGREL 75 MG TABLET PO SCH (22:25)
--- NOTE | 2020-09-14 01:55 | PN ---
Date of Progress Note: 09/13/2020 Chief Complaint: Hyponatremia. History Of Present Illness: The patient was started on sodium chloride tablets 2 g 3 times per day. The patient is on Lasix for volume control. The patient primarily was started on IV fluids with nor mal saline. She appears to be in fluid overload and IV fluids were reduced. The patient is admitted for chest discomfort and atrial fibrillation. She was found to have acute ki dney injury. She was started on IV fluids to prevent renal hypoperfusion. Review of Systems: Denies fever or chills. Physical Examination: Lungs: Diminished breath sounds at bases. Heart: S1, S2. Abdomen: Soft, benign. Extremities: No edema. No ulcers. Impression And Plan: 1.Hyponatremia, possibly syndrome of inappropriate antidiuretic hormone. Uric acid is 4.4, which barone pports diagnosis of SIADH. TSH and cortisol level are within normal limits. There is no evidence of underlying hypothyroidism causing the hyponatremia and cortisol level is within normal limits, which preclude adrenal insufficiency. Continue sodium chloride tablets and plan is to continue IV Lasix t o prevent fluid overload. 2.Qir-MJ-hzjfkfcve myocardial infarction, status post cardiac catheterization. Monitor renal functi on. The patient received IV fluids for acute kidney injury. Renal ultrasound was ordered. Monitor for any evidence of urinary retention. 3.Atrial fibrillation, rate controlled. 4.Hypertension. Adjust blood pressure medication for optimal systolic blood pressure of 120. EB/MODL Voice ID: [id number] Report ID: [id number]
[2020-09-14] MEDS: METOPROLOL XL 50 MG TAB PO SCH ×2 (05:49→17:30)
[2020-09-14 06:33] LABS: Albumin 2.6 g/dL (3.4-5.0); Phosphorus 1.3 mg/dL (2.5-4.9)
[2020-09-14 06:35] LABS: Potassium 2.9 mmol/L (3.5-5.1)
[2020-09-14] MEDS ORDERED: KCL 20 MEQ/100 mL IVPB 20 MEQ/100 ML BAG IV SCH (07:00)
[2020-09-14] MEDS ORDERED: NA CHLORIDE 0.9% IV ONE (07:30)
[2020-09-14] MEDS ORDERED: POTASSIUM CL IV ONE (07:30)
[2020-09-14] MEDS ORDERED: POTASSIUM PHOS IV ONE (07:30)
[2020-09-14] MEDS: ASPIRIN EC 81 MG TAB PO SCH (09:28)
[2020-09-14] MEDS: SODIUM CHLORIDE 1 GM TAB PO SCH ×3 (09:29→17:29)
[2020-09-14] MEDS: FUROSEMIDE 40 MG/4 ML VIAL IV SCH (09:29)
[2020-09-14] MEDS: LACTULOSE 20 GM/30 ML UCUP PO SCH (09:30)
[2020-09-14] MEDS: APIXABAN 2.5 MG TABLET PO SCH (09:45)
[2020-09-14] MEDS ORDERED: POTASSIUM CL SA 10 MEQ TAB PO ONE (11:14)
--- NOTE | 2020-09-14 16:39 | P.DS ---
Admission Date: 09/05/20 Discharge Date: 09/14/20 Primary Care Provider: Deirdre Disposition: ROUTINE DISCHARGE Discharge Condition: FAIR Reason for Admission: chest pain - Problems (1) Hyponatremia Current Visit: Yes Status: Acute (2) Acute renal failure Current Visit: Yes Status: Resolved Qualifiers: Acute renal failure type: unspecified Qualified Code(s): N17.9 - Acute kidney failure, unspecified (3) Atrial fibrillation with RVR Current Visit: Yes Status: Acute (4) HTN (hypertension) Current Visit: Yes Status: Acute Qualifiers: Hypertension type: essential hypertension Qualified Code(s): I10 - Essential (primary) hypertension (5) Hyperlipidemia Current Visit: Yes Status: Acute Qualifiers: Hyperlipidemia type: moderate mixed hyperlipidemia not requiring statin therapy Qualified Code(s): E78.2 - Mixed hyperlipidemia (6) Protein calorie malnutrition Current Visit: Yes Status: Acute Qualifiers: Protein-calorie malnutrition severity: moderate Qualified Code(s): E44.0 - Moderate protein-calorie malnutrition (7) Constipation Current Visit: Yes Status: Acute Qualifiers: Constipation type: unspecified constipation type Qualified Code(s): K59.00 - Constipation, unspecified Brief History of Present Illness: Patient recently establish care. She has a history of afib, htn and hyperlipidemia. She normally follows up with Dr. Pinedo. Has been having some chest discomfort since Sunday. Came to the office on . Was treated for allergies and reactive airway disease as she had a few crackles at that time. The patient woke up last night feeling pain in her chest, sob and tightness in her shoulders. However was not radiating down her left arm. She came to the ER where she was found to have a rapid heart rate. The patient is still feeling a bit of her chest discomfort. Her heart rate was in the 110-130s Hospital Course: Patient was admitted for afib with RVR Her troponin level elevated and the patient was treated for Non STEMI. Was taken to the slab off mill tender by Dr. Gregg. No stenting needed. Unfortuantely the patient developed acute renal failure secondary to the contrast most likely.. The patient was then seen by Nephrology. Her creatine improved However she started having hyponatremia that was refractory to fluids and diurectics. The patient eventually started to recover She wishes to go home. The patient has a appointment with me and is to get stat labs on and to follow up with me Then to see Dr. Newman on Sunday Thank you for allowing me to be a part of her care. Vital Signs/Physical Exam: Temp Pulse Resp BP Pulse Ox 97.5 F 55 20 143/63 H 95 09/14/20 08:00 09/14/20 09:29 09/14/20 08:00 09/14/20 09:29 09/14/20 08:00 General: Alert, In no apparent distress HEENT: Atraumatic, PERRLA, EOMI Neck: Supple, JVD not distended Respiratory: Clear to auscultation bilaterally, Normal air movement Cardiovascular: Regular rate/rhythm, Normal S1 S2 Gastrointestinal: Normal bowel sounds, No tenderness Musculoskeletal: No tenderness Integumentary: No rashes Neurological: Normal speech, Normal tone, Normal affect Lymphatics: No axilla or inguinal lymphadenopathy Laboratory Data at Discharge: WBC 11.20 K/uL (4.3-10.9) H 09/06/20 03:46 Hgb 11.9 g/dL (12.0-15.0) L 09/06/20 03:46 Hct 35.9 % (36.0-45.0) L 09/06/20 03:46 Plt Count 334 K/uL (152-406) 09/06/20 03:46 PT 14.9 SECONDS (9.5-12.5) H 09/05/20 01:30 INR 1.29 09/05/20 01:30 APTT Cancelled 09/06/20 10:30 Sodium 127 mmol/L (136-145) L 09/14/20 12:57 Potassium Cancelled 09/14/20 Unknown BUN 13 mg/dL (7-18) 09/14/20 12:57 Creatinine 0.74 mg/dL (0.55-1.3) 09/14/20 12:57 Glucose 123 mg/dL (74-106) H 09/14/20 12:57 Uric Acid 4.4 mg/dL (2.6-6.0) 09/10/20 05:18 Phosphorus 1.3 mg/dL (2.5-4.9) L 09/14/20 05:36 Magnesium 2.0 mg/dL (1.8-2.4) 09/05/20 01:30 Total Bilirubin 0.6 mg/dL (0.2-1.0) 09/12/20 04:42 AST 80 U/L (15-37) H 09/12/20 04:42 ALT 659 U/L (12-78) H* D 09/12/20 04:42 Alkaline Phosphatase 98 U/L (45-117) 09/12/20 04:42 Troponin I 3.32 ng/mL (0.0-0.045) H* D 09/05/20 13:55 Home Medications: Clopidogrel Bisulfate [Plavix] 75 mg PO DAILY 09/05/20 Irbesartan [Avapro] 300 mg PO DAILY 09/05/20 Metoprolol Succinate [Toprol Xl] 50 mg PO DAILY 09/05/20 Potassium Chloride 10 meq PO DAILY 15 Days #30 tablet.er 09/14/20 Sodium Chloride Tab [NaCl Tabs] 1 gm GT BID 15 Days #30 tab 09/14/20 New Medications: Potassium Chloride 10 meq PO DAILY 15 Days #30 tablet.er Sodium Chloride Tab [NaCl Tabs] 1 gm GT BID 15 Days #30 tab Diet: Regular Activity: Fall precautions Followup: Rudy Gilmore MD [ACTIVE - CAN ADMIT] - 09/16/20 11:20 am Vernell Syed MD [COURTESY - CAN ADMIT] - 09/20/20 (please call and make an appointment) Time spent managing pt's care (in minutes): 45
[2020-09-14 17:18] VITALS: BP 141/65; TEMP 98.1
--- NOTE | 2020-09-14 22:52 | PN ---
Date of Progress Note: 09/14/2020 Chief Complaint: Hyponatremia, hypoosmolar state, hypokalemia. History Of Present Illness: The patient developed hypokalemia today and was started on replacement w ith potassium phosphate to replace phosphorus and potassium. The patient has generalized weakness. She was treated with sodium chloride tablets for hyponatremia. She has SIADH. Uric acid was 4.4. 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 TSH and cortisol level were within normal limits. The patient is admitted for chest discomfort and atrial fibrillation. She was found to have acute kidney injury. She was started on IV fluids with normal saline to prevent renal hypoperfusion. Review of Systems: Denies fever or chills. Physical Examination: Lungs: Diminished breath sounds at bases. Heart: S1, S2. Abdomen: Soft, benign. Extremities: No edema. Impression And Plan: 1.Hyponatremia, overall improving. The patient has likely syndrome of inappropriate antidiuretic ho rmone. Uric acid is 4.4, which support diagnosis of SIADH. TSH and cortisol level were within baltazar l limits. There is no evidence of underlying hypothyroidism causing the hyponatremia and cortisol le maryanne is within normal limits, which preclude adrenal insufficiency. Continue sodium chloride tablet a nd plan is to hold Lasix in view of hypokalemia to prevent progressively worse hypokalemia. The preston ent received potassium replacement and potassium level will be re-evaluated. The patient will contin ue sodium chloride tablets and she will need to have followup lab work within the next 2 days. The p atient insists on being discharged to home today. She denies nausea, vomiting, headache, vision mendoza ges. I discussed case with attending as well as with the patient and her at the bedside. I recommended to increase protein intake, which might help with electrolyte abnormalities. The patient will continue sodium chloride tablets and potassium replacement. 2.Atrial fibrillation, rate controlled. 3.Hypertension. Continue blood pressure medication. EB/MODL Voice ID: [id number] Report ID: [id number]
== END 2020-09-14 17:54 | disposition home or self-care (01) | DRG 280 ==
LOC: ER 00:46 → ERHOLD 07:06 → 2ND 12:21 → ERHOLD 14:19 → 2ND 09-08 17:32
PROVIDERS: ADMIT Internal Medicine; ATTEND Internal Medicine
PROC: 4A023N7 Measurement of Cardiac Sampling and Pressure, Left Heart, Percutaneous Approach (ICD-10-PCS; principal; 2020-09-06)
PROC: B2111ZZ Fluoroscopy of Multiple Coronary Arteries using Low Osmolar Contrast (ICD-10-PCS; 2020-09-06)
DX: I48.91 Unspecified atrial fibrillation (principal); I21.4 Non-ST elevation (NSTEMI) myocardial infarction; N17.0 Acute kidney failure with tubular necrosis; E44.0 Moderate protein-calorie malnutrition; E22.2 Syndrome of inappropriate secretion of antidiuretic hormone; E78.2 Mixed hyperlipidemia; I25.10 Atherosclerotic heart disease of native coronary artery without angina pectoris; K21.9 Gastro-esophageal reflux disease without esophagitis; N14.1 Nephropathy induced by other drugs, medicaments and biological substances; K59.00 Constipation, unspecified; I10 Essential (primary) hypertension; T50.8X5A Adverse effect of diagnostic agents, initial encounter; Z79.02 Long term (current) use of antithrombotics/antiplatelets; Z79.899 Other long term (current) drug therapy; Z86.73 Personal history of transient ischemic attack (TIA), and cerebral infarction without residual deficits; Z68.23 Body mass index [BMI] 23.0-23.9, adult; Z20.822 Contact with and (suspected) exposure to COVID-19
CPT/HCPCS: 36415; 70450; 71045; 72125; 76705; 76770; 80048; 80053; 80069; 80076; 81003; 81015; 82248; 82533; 82550; 82553; 82570; 82607; 82652; 82728; 82746; 82947; 83540; 83615; 83735; 83880; 83930; 83935; 83970; 84075; 84100; 84132; 84156; 84165; 84295; 84300; 84443; 84466; 84484; 84550; 85025; 85044; 85610; 85730; 86317; 86704; 86706; 87077; 87086; 87088; 87186; 87340; 87522; 93005; 93306; 93454; 96374; 97116; 97161; 97530; 99285; C1893; J0282; J0360; J0583; J1644; J1940; J2250; J2270; J2405; J3010; J3480; J7030; J7040; J7060; U0003

== ENCOUNTER 2020-09-18 22:26 | Inpatient (IN) | payer OTHER ==
[2020-09-18 23:05] LABS: Absolute Lymphocytes (CBC) 1.9 K/uL (0.7-4.9); Basophils % 0.5 % (0-1.3); Hematocrit 34.3 % (36.0-45.0); MPV 7.6 fL (7.6-11.3); RBC Red Blood Cell Count 4.22 M/uL (3.86-4.86)
[2020-09-18 23:12] LABS: Protime INR 1.34
[2020-09-18 23:27] LABS: Albumin 2.9 g/dL (3.4-5.0); Bilirubin Direct 0.3 mg/dL (0-0.2); Bilirubin Total 0.6 mg/dL (0.2-1.0); Protein, Total 6.1 g/dL (6.4-8.2); Troponin (Emerg Dept Use Only) 0.22 ng/mL (0.0-0.045)
[2020-09-18 23:29] LABS: Magnesium 1.9 mg/dL (1.8-2.4); Potassium 3.7 mmol/L (3.5-5.1)
--- NOTE | 2020-09-18 23:41 | ER ---
Nurse's Notes [facility] Name: Puja Ahn Age: 85 yrs Sex: Female : 1935 Arrival Date: 09/18/2020 Time: 22:36 Bed 3 Private MD: Diagnosis: Right Pleural Effusion;Congestive Heart failure;Atrial Fibrillation with RVR Presentation: 09/18 22:36 Chief complaint: EMS states: called out for shortness of breath, 88% RA at home, placed em on 2 L via NC with 95%, generalized weakness and nausea, denies fever or vomiting, was admitted to the hospital on September 04 for hypertension and kidney failure, recently discharged from the hospital, covid test was negative, denies chest pain, hx of AFIB. Coronavirus screen: Client denies travel out of the [place] in the last 14 days. Ebola Screen: Patient negative for fever greater than or equal to 101.5 degrees Fahrenheit, and additional compatible Ebola Virus Disease symptoms Patient denies exposure to infectious person. Patient denies travel to an Ebola-affected area in the 21 days before illness onset. No symptoms or risks identified at this time. Initial Sepsis Screen: Does the patient meet any 2 criteria? HR > 90 bpm. No. Patient's initial sepsis screen is negative. Does the patient have a suspected source of infection? No. Patient's initial sepsis screen is negative. Risk Assessment: Do you want to hurt yourself or someone else? Patient reports no desire to harm self or others. Onset of symptoms was September 18, 2020. 22:36 Method Of Arrival: EMS: [facility] em 22:36 Acuity: DENIS 2 em Historical: - Allergies: 22:41 No Known Allergies; mg2 22:41 No Known Allergies; em - Home Meds: 22:41 atorvastatin 10 mg Oral tab 1 tab once daily [Active]; irbesartan 300 mg Oral tab 1 tab mg2 once daily [Active]; metoprolol succinate 50 mg Oral Tb24 1 tab once daily [Active]; Plavix 75 mg Oral tab 1 tab once daily [Active]; acetaminophen 500 mg Oral tab 1 tab three times a day [Active]; 22:41 acetaminophen 500 mg Oral tab 1 tab three times a day [Active]; Plavix 75 mg Oral tab 1 em tab once daily [Active]; metoprolol succinate 50 mg Oral Tb24 1 tab once daily [Active]; atorvastatin 10 mg Oral tab 1 tab once daily [Active]; irbesartan 300 mg Oral tab 1 tab once daily [Active]; - PMHx: 22:41 Atrial Fib; Gastric Reflux; High Cholesterol; Hypertension; TIA; mg2 22:41 Atrial Fib; High Cholesterol; Gastric Reflux; Hypertension; TIA; em - PSHx: 22:41 None; em - Immunization history:: Flu vaccine status is unknown. Adult Immunizations up to date. - Social history:: Smoking status: unknown Smoking status: Patient denies any tobacco usage or history of. Screenin:48 Abuse screen: Denies threats or abuse. Denies injuries from another. Nutritional mg2 screening: No deficits noted. Tuberculosis screening: No symptoms or risk factors identified. Fall Risk IV access (20 points). Assessment: 22:42 General: Appears in no apparent distress. comfortable, Behavior is calm, cooperative. mg2 Pain: Denies pain. Neuro: Level of Consciousness is awake, alert, obeys commands. Cardiovascular: Capillary refill < 3 seconds Patient's skin is warm and dry. Respiratory: Airway is patent Respiratory effort is even, unlabored, Respiratory pattern is regular, symmetrical. GI: Abdomen is non-distended, Reports nausea. : No signs and/or symptoms were reported regarding the genitourinary system. EENT: No signs and/or symptoms were reported regarding the EENT system. Derm: Skin is intact, is healthy with good turgor, Skin is pink, warm \T\ dry. normal. Musculoskeletal: Circulation, motion, and sensation intact. Capillary refill < 3 seconds. 22:56 Reassessment: Mr. Ahn () [phone]. ea Vital Signs: 22:36 BP 128 / 93; Pulse 116; Resp 20; Temp 98.0; Pulse Ox 94% on 2 lpm NC; Pain 0/10; em 22:40 BP 128 / 93; Pulse 107; Resp 20; Pulse Ox 93% on R/A; mg2 23:13 BP 128 / 72; Pulse 115; Resp 20; Pulse Ox 95% on R/A; mg2 23:46 BP 138 / 86; Pulse 91; Resp 20; Pulse Ox 99% ; ea ED Course: 22:36 Patient arrived in ED. em 22:40 Danie Fuentes, SALUD is Primary Nurse. mg2 22:40 Triage completed. em 22:41 Davonte Mlegar MD is Attending Physician. 7 22:42 Arm band placed on. mg2 22:43 Patient has correct armband on for positive identification. airplane designer on. Pulse mg2 ox on. NIBP on. Door closed. Warm blanket given. 22:48 No provider procedures requiring assistance completed. Inserted saline lock: 20 gauge mg2 in left forearm, using aseptic technique. Blood collected. by SALUD SPENCER. 23:00 XRAY Chest (1 view) In Process Unspecified. EDMS 23:13 Straight cath inserted, using sterile technique, 16 Fr. Specimen obtained. Returned mg2 clear yellow urine. Patient tolerated well. 23:38 Rudy Gilmore MD is Hospitalizing Provider. [facility] 23:54 Patient admitted, IV remains in place. ea Administered Medications: 23:45 Drug: Lasix 20 mg Route: IVP; Site: right forearm; mg2 09/19 00:00 Follow up: Response: No adverse reaction ea 09/18 23:45 Drug: Aspirin Chewable Tablet 162 mg Route: PO; mg2 09/19 00:00 Follow up: Response: No adverse reaction ea Outcome: 09/18 23:40 Decision to Hospitalize by Provider. [facility] 23:54 Instructed on the need for admit, Demonstrated understanding of instructions. ea 09/19 02:27 Admitted to Med/surg accompanied by tech, room 220, with chart, Report called to alex Spencer RN Condition: stable 02:28 Patient left the ED. [facility] [place] Signatures: Dispatcher [employer] EDWV Javier Sutton RN RN em Antunez, Elena, RN RN ea Gardose, Michele, RN RN [facility] [place] Davonte Melgar MD MD [facility] Corrections: (The following items were deleted from the chart) 03 22:40 22:40 BP 128 / 93; Pulse 107bpm; Resp 18bpm; Pulse Ox 93% RA; mg2 mg2
--- NOTE | 2020-09-18 23:41 | EDPHYS ---
Physician Documentation [facility] Name: Puja Ahn Age: 85 yrs Sex: Female : 1935 Arrival Date: 09/18/2020 Time: 22:36 Bed 3 Private MD: ED Physician Davonte Melgar HPI: 09/18 22:56 This 85 yrs old Female presents to ER via EMS with complaints of Nausea, mh7 General Weakness, Shortness Of Breath. 22:56 The patient has shortness of breath at rest, with light activity. Onset: The mh7 symptoms/episode began/occurred yesterday. Duration: The symptoms are intermittent, with no pattern. The patient's shortness of breath is aggravated by exertion, light activity, is alleviated by sitting up. Associated signs and symptoms: Pertinent positives: nausea, generalized weakness/fatigue, Pertinent negatives: chest pain, non-productive cough, productive cough, diaphoresis, dizziness, fever, hemoptysis, loss of consciousness, numbness in extremities, visual changes, vomiting. Severity of symptoms: At their worst the symptoms were moderate today, in the emergency department the symptoms have improved moderately. The patient has been recently been admitted at [facility], was discharged earlier this week. Historical: - Allergies: 22:41 No Known Allergies; mg2 22:41 No Known Allergies; em - Home Meds: 22:41 atorvastatin 10 mg Oral tab 1 tab once daily [Active]; irbesartan 300 mg Oral tab 1 tab mg2 once daily [Active]; metoprolol succinate 50 mg Oral Tb24 1 tab once daily [Active]; Plavix 75 mg Oral tab 1 tab once daily [Active]; acetaminophen 500 mg Oral tab 1 tab three times a day [Active]; 22:41 acetaminophen 500 mg Oral tab 1 tab three times a day [Active]; Plavix 75 mg Oral tab 1 em tab once daily [Active]; metoprolol succinate 50 mg Oral Tb24 1 tab once daily [Active]; atorvastatin 10 mg Oral tab 1 tab once daily [Active]; irbesartan 300 mg Oral tab 1 tab once daily [Active]; - PMHx: 22:41 Atrial Fib; Gastric Reflux; High Cholesterol; Hypertension; TIA; mg2 22:41 Atrial Fib; High Cholesterol; Gastric Reflux; Hypertension; TIA; em - PSHx: 22:41 None; em - Immunization history:: Flu vaccine status is unknown. Adult Immunizations up to date. - Social history:: Smoking status: unknown Smoking status: Patient denies any tobacco usage or history of. ROS: 22:56 Constitutional: Negative for fever, chills, and weight loss, Eyes: Negative for injury, mh7 pain, redness, and discharge, ENT: Negative for injury, pain, and discharge, Neck: Negative for injury, pain, and swelling. 22:56 Back: Negative for injury and pain. 22:56 : Negative for injury, bleeding, discharge, and swelling, MS/Extremity: Negative for injury and deformity, Skin: Negative for injury, rash, and discoloration, Neuro: Negative for headache, weakness, numbness, tingling, and seizure, Psych: Negative for depression, anxiety, suicide ideation, homicidal ideation, and hallucinations, Allergy/Immunology: Negative for hives, rash, and allergies, Endocrine: Negative for neck swelling, polydipsia, polyuria, polyphagia, and marked weight changes, Hematologic/Lymphatic: Negative for swollen nodes, abnormal bleeding, and unusual bruising. 22:56 Cardiovascular: Positive for palpitations. 22:56 Abdomen/GI: Negative for abdominal pain, vomiting, diarrhea, abdominal cramps, abdominal distension, hematemesis, black/tarry stool. Exam: 22:56 Constitutional: This is a well developed, well nourished patient who is awake, alert, mh7 and in no acute distress. Head/Face: Normocephalic, atraumatic. Eyes: Pupils equal round and reactive to light, extra-ocular motions intact. Lids and lashes normal. Conjunctiva and sclera are non-icteric and not injected. Cornea within normal limits. Periorbital areas with no swelling, redness, or edema. Neck: Trachea midline, no thyromegaly or masses palpated, and no cervical lymphadenopathy. Supple, full range of motion without nuchal rigidity, or vertebral point tenderness. No Meningismus. Chest/axilla: Normal chest wall appearance and motion. Nontender with no deformity. No lesions are appreciated. 22:56 Abdomen/GI: Soft, non-tender, with normal bowel sounds. No distension or tympany. No guarding or rebound. No evidence of tenderness throughout. Back: No spinal tenderness. No costovertebral tenderness. Full range of motion. Skin: Warm, dry with normal turgor. Normal color with no rashes, no lesions, and no evidence of cellulitis. MS/ Extremity: Pulses equal, no cyanosis. Neurovascular intact. Full, normal range of motion. Neuro: Awake and alert, GCS 15, oriented to person, place, time, and situation. Cranial nerves II-XII grossly intact. Motor strength 5/5 in all extremities. Sensory grossly intact. Cerebellar exam normal. Normal gait. Psych: Awake, alert, with orientation to person, place and time. Behavior, mood, and affect are within normal limits. 22:56 Cardiovascular: Rate: tachycardic, Rhythm: irregularly irregular, Pulses: no pulse deficits are appreciated, Heart sounds: normal, normal S1and S2, Edema: is not appreciated, JVD: is not appreciated. 22:56 Respiratory: the patient does not display signs of respiratory distress, Respirations: normal, Breath sounds: rhonchi, that are mild, are scattered, Respiratory rate: 20 Vital Signs: 22:36 BP 128 / 93; Pulse 116; Resp 20; Temp 98.0; Pulse Ox 94% on 2 lpm NC; Pain 0/10; em 22:40 BP 128 / 93; Pulse 107; Resp 20; Pulse Ox 93% on R/A; mg2 23:13 BP 128 / 72; Pulse 115; Resp 20; Pulse Ox 95% on R/A; mg2 23:46 BP 138 / 86; Pulse 91; Resp 20; Pulse Ox 99% ; ea MDM: 23:37 Differential diagnosis: Anemia Anxiety Reaction asthma, Bronchitis CHF exacerbation, mh7 Chronic Obstructive Pulmonary Disease Myocardial Infarction pneumonia, Pneumothorax Psychogenic pulmonary edema. Data reviewed: vital signs, nurses notes, EMS record, old medical records, lab test result(s), cardiac enzymes, CBC, electrolytes, urinalysis, EKG, radiologic studies, plain films. Data interpreted: Pulse oximetry: on 2L(s) per nasal canula, is 95 %. Interpretation: acceptable. Counseling: I had a detailed discussion with the patient and/or guardian regarding: the historical points, exam findings, and any diagnostic results supporting the discharge/admit diagnosis, lab results, radiology results, the need for further work-up and treatment in the hospital. 23:40 Patient medically screened. [facility] 09/18 22:42 Order name: Basic Metabolic Panel; Complete Time: 23:30 7 09/18 22:42 Order name: CBC with Diff; Complete Time: 23:16 7 09/18 22:42 Order name: LFT's; Complete Time: 23:30 [facility] 09/18 22:42 Order name: Magnesium; Complete Time: 23:30 [facility] 09/18 22:42 Order name: NT PRO-BNP; Complete Time: 23:30 [facility] 09/18 22:42 Order name: PT-INR; Complete Time: 23:30 [facility] 09/18 22:42 Order name: Troponin (emerg Dept Use Only); Complete Time: 23:30 [facility] 09/18 23:20 Order name: Urine Dipstick--Ancillary (enter results) tt3 09/18 23:46 Order name: Basic Metabolic Panel [facility] 09/18 23:46 Order name: Basic Metabolic Panel [facility] 09/18 23:46 Order name: NT PRO-BNP [facility] 09/18 23:46 Order name: NT PRO-BNP [facility] 09/18 23:46 Order name: Troponin I [facility] 09/18 23:46 Order name: Troponin I [facility] 09/18 22:42 Order name: XRAY Chest (1 view) [facility] 09/18 22:42 Order name: EKG; Complete Time: 22:43 [facility] 09/18 22:42 Order name: Cardiac monitoring; Complete Time: 22:49 [facility] 09/18 22:42 Order name: EKG - Nurse/Tech; Complete Time: 22:49 [facility] 09/18 22:42 Order name: IV Saline Lock; Complete Time: 22:49 [facility] 09/18 22:42 Order name: Labs collected and sent; Complete Time: 22:49 [facility] 09/18 22:42 Order name: O2 Per Protocol; Complete Time: 22:49 [facility] 09/18 23:46 Order name: Troponin I EDMS 09/18 23:46 Order name: Consistent Carb (ADA) [address] EDMS 09/18 23:47 Order name: Low Sodium EDMS 09/18 23:47 Order name: CBC with Automated Diff EDMS 09/18 23:47 Order name: CBC with Automated Diff EDMS 09/18 23:47 Order name: COVID-19 : Document "Date of Symptom Onset" if Symptomatic. mg2 09/19 01:56 Order name: SARS-COV-2 RT PCR [facility] 09/18 22:42 Order name: O2 Sat Monitoring; Complete Time: 22:49 [facility] 09/18 22:42 Order name: Urine Dipstick-Ancillary (obtain specimen); Complete Time: 23:13 [facility] Administered Medications: 23:45 Drug: Lasix 20 mg Route: IVP; Site: right forearm; mg2 09/19 00:00 Follow up: Response: No adverse reaction ea 09/18 23:45 Drug: Aspirin Chewable Tablet 162 mg Route: PO; mg2 09/19 00:00 Follow up: Response: No adverse reaction ea Disposition: 09/18/20 23:40 Hospitalization ordered by Rudy Gilmore for Inpatient Admission. Preliminary diagnosis are Right Pleural Effusion, Congestive Heart failure, Atrial Fibrillation with RVR. - Bed requested for Telemetry/MedSurg (Inpatient). - Status is Inpatient Admission. mg2 - Condition is Stable. - Problem is an acute exacerbation. - Symptoms have improved. Signatures: Dispatcher [employer] [facility] Javier Sutton, RN RN Carson Ladd, JOSE DE JESUS-C DIRECTOR OF RECRUITMENT AND ADMISSIONS-[facility] Danie Fuentes RN RN [facility] Davonte Melgar MD MD [facility] Oralia Esteves RN RN rd1 Johanna Black RN, ea Corrections: (The following items were deleted from the chart) 02:02 09/18 23:40 Hospitalization Ordered by Rudy Gilmore MD for Inpatient Admission. rd1 Preliminary diagnosis is Right Pleural Effusion; Congestive Heart failure; Atrial Fibrillation with RVR. Bed requested for Telemetry/MedSurg (Inpatient). Status is Inpatient Admission. Condition is Stable. Problem is an acute exacerbation. Symptoms have improved. [facility] 09/19 02:28 02:02 09/18/2020 23:40 Hospitalization Ordered by Rudy Gilmore MD for Inpatient mg2 Admission. Preliminary diagnosis is Right Pleural Effusion; Congestive Heart failure; Atrial Fibrillation with RVR. Bed requested for Telemetry/MedSurg (Inpatient). Status is Inpatient Admission. Condition is Stable. Problem is an acute exacerbation. Symptoms have improved. rd1
[2020-09-18] MEDS ORDERED: ACETAMINOPHEN 500 MG TAB PO PRN (23:43)
[2020-09-18] MEDS ORDERED: MORPHINE 2 MG/ML SYR IV PRN (23:43)
[2020-09-18] MEDS ORDERED: ONDANSETRON 4 MG/2 ML VIAL IV PRN (23:43)
[2020-09-18] MEDS ORDERED: ASPIRIN EC 81 MG TAB PO ONE (23:55)
[2020-09-18] MEDS ORDERED: FUROSEMIDE 20 MG/ 2ML VIAL ONE (23:55)
[2020-09-19 00:06] LABS: Urine Glucose NEGATIVE (NEG)
[2020-09-19 00:07] LABS: Urine Blood NEGATIVE (NEG); Urine Protein 2+ (NEG)
[2020-09-19 02:51] VITALS: BMI 22.4
[2020-09-19 04:35] LABS: Absolute Lymphocytes (CBC) 1.5 K/uL (0.7-4.9); Basophils % 0.3 % (0-1.3); Hematocrit 32.4 % (36.0-45.0); Lymphocytes % 15.2 % (15.3-44.8); MPV 7.7 fL (7.6-11.3); RBC Red Blood Cell Count 3.96 M/uL (3.86-4.86)
[2020-09-19 04:50] LABS: Potassium 3.3 mmol/L (3.5-5.1)
--- NOTE | 2020-09-19 08:23 | RAD REPORT ---
EXAM DESCRIPTION: Venessa Single View09/18/2020 11:01 pm CLINICAL HISTORY: sob COMPARISON: August 2020 FINDINGS: Small to moderate right and small left pleural effusions. Right basilar opacification. He art remains enlarged. Mild bilateral interstitial lung opacities IMPRESSION: Small to moderate right small left pleural effusions Right basilar opacification could represent atelectasis, pneumonia or alveolar pulmonary edema Mild bilateral interstitial opacities probably mild interstitial pulmonary edema
[2020-09-19] MEDS ORDERED: FUROSEMIDE 20 MG/ 2ML VIAL IV SCH (09:00)
[2020-09-19] MEDS ORDERED: POTASSIUM CL SA 10 MEQ TAB PO ONE (12:00)
[2020-09-19] MEDS ORDERED: AMIODARONE HCL 150 MG in D5W 100 ML IV STA (12:45)
--- NOTE | 2020-09-19 12:48 | P.HP ---
Certification for Inpatient Patient admitted to: Observation With expected LOS: <2 Midnights Patient will require the following post-hospital care: None Practitioner: I am a practitioner with admitting privileges, knowledge of patient current condition, hospital course, and medical plan of care. Services: Services provided to patient in accordance with Admission requirements found in Title 42 Section 412.3 of the Code of Federal Regulations Patient History Date of Service: 09/19/20 Primary Care Provider: Deirdre Reason for admission: Atrial fib with RVR History of Present Illness: Patient of mine with recent NSTEMI. She went home on Sunday. Had nausea and shortness of breath last night. Her called the ER. Was found to be tachycardic in atrial fib. She had an elevated bnp. However she does not seem to be fluid overloaded. The patient was converted recently on amiodarone. However she was doing well and not discharged on it. The patient feels better this morning. However she is still in atrial fib with a heart rate of 90-110. Allergies No Known Allergies Allergy (Unverified 08/24/12 07:15) Home Medications: Clopidogrel Bisulfate [Plavix] 75 mg PO DAILY 09/05/20 Irbesartan [Avapro] 300 mg PO DAILY 09/05/20 Metoprolol Succinate [Toprol Xl] 50 mg PO DAILY 09/05/20 Potassium Chloride 10 meq PO DAILY 15 Days #30 tablet.er 09/14/20 Sodium Chloride Tab [NaCl Tabs] 1 gm GT BID 15 Days #30 tab 09/14/20 Atorvastatin Calcium [Lipitor] 10 mg PO BEDTIME 09/19/20 Trazodone [Desyrel*] 0.5 tab PO BEDTIME 09/19/20 - Past Medical/Surgical History Has patient received pneumonia vaccine in the past: Yes Diabetic: No -: HTN -: HLD -: APPENDECTOMY - Family History Father -: Lung disease Notes: emphysema Mother -: Lung disease Notes: blood clot in lungs - Social History Smoking Status: Never smoker Alcohol use: No CD- Drugs: No Caffeine use: Yes Place of Residence: Home Review of Systems 10-point ROS is otherwise unremarkable Respiratory: Shortness of Breath Gastrointestinal: Nausea Physical Examination - Vital Signs Temperature: 97.6 F Blood Pressure: 157/78 Pulse: 113 Respirations: 18 Pulse Ox (%): 92 - Physical Exam General: Alert, In no apparent distress HEENT: Atraumatic, PERRLA, Mucous membr. moist/pink, EOMI, Sclerae nonicteric Neck: Supple, 2+ carotid pulse no bruit, No LAD, Without JVD or thyroid abnormality Respiratory: Clear to auscultation bilaterally, Normal air movement Cardiovascular: Regular rate/rhythm, Normal S1 S2 Gastrointestinal: Normal bowel sounds, No tenderness Musculoskeletal: No tenderness Integumentary: No rashes Neurological: Normal gait, Normal speech, Normal strength at 5/5 x4 extr, Normal tone, Normal affect Lymphatics: No axilla or inguinal lymphadenopathy - Studies Laboratory Data (last 24 hrs) 09/18/20 22:48: PT 15.4 H, INR 1.34 09/18/20 22:48: WBC 11.00 H, Hgb 11.4 L, Hct 34.3 L, Plt Count 319 09/18/20 22:48: Sodium 137, Potassium 3.7, BUN 13, Creatinine 0.83, Glucose 149 H, Magnesium 1.9, Total Bilirubin 0.6, AST 24, ALT 171 H D, Alkaline Phosphatase 78 Assessment and Plan - Problems (Diagnosis) (1) Atrial fibrillation with RVR Current Visit: No Status: Acute Plan: Have discussed the patient with Dr. Gregg. Will load her amiodarone. Start her on eliquis, stop the plavix in favor of aspirin. Put her on amiodarone 200mg po bid for a month. Will see if we can wean her down off it in a month to qday. (2) CAD (coronary artery disease) Current Visit: Yes Status: Acute Plan: Will continue care with metoprolol, eliquis and avapro. Will continue statin. Qualifiers: Coronary Disease-Associated Artery/Lesion type: [place] artery Associated angina: without angina (3) HTN (hypertension) Current Visit: No Status: Acute Plan: stable. Will restart home medications and adjust as necessary. Qualifiers: Hypertension type: essential hypertension (4) Hypokalemia Current Visit: Yes Status: Acute Plan: continue home dose of potassium Discharge Plan: Home Plan to discharge in: 24 Hours - Advance Directives Does patient have a Living Will: No Does patient have a Durable POA for Healthcare: No - Code Status/Comfort Care Code Status Assessed: No Code Status: Full Code Physician Review: Patient Assessed, Agree with Above Assessment and Plan Critical Care: No Time Spent Managing Pts Care (In Minutes): 65
[2020-09-19] MEDS: ATORVASTATIN 10 MG TAB PO SCH (20:13)
[2020-09-19] MEDS: APIXABAN 5 MG TABLET PO SCH (20:13)
[2020-09-19] MEDS: AMIODARONE HCL 200 MG TAB PO SCH (20:13)
[2020-09-20 06:07] LABS: Absolute Lymphocytes (CBC) 1.6 K/uL (0.7-4.9); Basophils % 0.2 % (0-1.3); Hematocrit 35.1 % (36.0-45.0); Lymphocytes % 13.8 % (15.3-44.8); MPV 7.9 fL (7.6-11.3); RBC Red Blood Cell Count 4.29 M/uL (3.86-4.86)
[2020-09-20 06:29] LABS: Albumin 3.2 g/dL (3.4-5.0); Bilirubin Total 1.2 mg/dL (0.2-1.0); Potassium 4.2 mmol/L (3.5-5.1); Protein, Total 6.3 g/dL (6.4-8.2)
[2020-09-20] MEDS: APIXABAN 5 MG TABLET PO SCH ×2 (08:26→21:13)
[2020-09-20] MEDS: AMIODARONE HCL 200 MG TAB PO SCH (08:27)
[2020-09-20] MEDS ORDERED: FUROSEMIDE 20 MG TABLET PO SCH (09:00)
[2020-09-20] MEDS ORDERED: ASPIRIN 81 MG CHEWABLE TABLET PO SCH (09:00)
[2020-09-20] MEDS ORDERED: POTASSIUM CL SA 10 MEQ TAB PO SCH (09:00)
[2020-09-20] MEDS ORDERED: METOPROLOL XL 50 MG TAB PO SCH (09:00)
[2020-09-20] MEDS ORDERED: CLOPIDOGREL 75 MG TABLET PO SCH (09:00)
[2020-09-20] MEDS ORDERED: IRBESARTAN 150 MG TAB PO SCH (09:00)
--- NOTE | 2020-09-20 11:05 | P.PN ---
Subjective Date of Service: 09/20/20 Primary Care Provider: Deirdre Chief Complaint: Atrial fib with RVR Subjective: No new changes Review of Systems 10-point ROS is otherwise unremarkable Respiratory: Shortness of Breath Gastrointestinal: Nausea, Abdominal Pain Physical Examination - Vital Signs Temperature: 97.9 F Blood Pressure: 136/66 Pulse: 106 Respirations: 18 Pulse Ox (%): 96 - Physical Exam General: Alert (d), In no apparent distress HEENT: Atraumatic, PERRLA, EOMI Neck: Supple, JVD not distended Respiratory: Clear to auscultation bilaterally, Normal air movement Cardiovascular: Normal S1 S2, Irregular heart rate/rhythm (tachycardia) Gastrointestinal: Normal bowel sounds, No tenderness Musculoskeletal: No tenderness Integumentary: No rashes Neurological: Normal speech, Normal tone, Normal affect Lymphatics: No axilla or inguinal lymphadenopathy Assessment & Plan - Problems (Diagnosis) (1) Atrial fibrillation with RVR Current Visit: No Status: Acute Plan: Have discussed the patient with Dr. Gregg. Will load her amiodarone. Start her on eliquis, stop the plavix in favor of aspirin. Put her on amiodarone 200mg po bid for a month. Will see if we can wean her down off it in a month to qday. 09/[address] Cooley. Was started on amiodarone yesterday. Will increase the metoprolol to 100mg po bid (2) CAD (coronary artery disease) Current Visit: Yes Status: Acute Plan: Will continue care with metoprolol, eliquis and avapro. Will continue statin. Qualifiers: Coronary Disease-Associated Artery/Lesion type: [place] artery Associated angina: without angina (3) HTN (hypertension) Current Visit: No Status: Acute Plan: stable. Will restart home medications and adjust as necessary. Qualifiers: Hypertension type: essential hypertension (4) Hypokalemia Current Visit: Yes Status: Acute Plan: continue home dose of potassium Discharge Plan: Home Plan to discharge in: 24 Hours Physician Review: Patient Assessed, Agree with Above Assessment and Plan Critical Care: No Time Spent Managing Pts Care (In Minutes): 25
[2020-09-20] MEDS ORDERED: METOPROLOL XL 50 MG TAB PO ONE (11:20)
--- NOTE | 2020-09-20 15:20 | P.PN ---
Date of Service: 09/20/20 Patient has been having continuous afib. Discussed with Dr. Gregg. Will transfer her to the icu and start a continuous amiodarone drip. Trying to establish some rhythm controll
[2020-09-20] MEDS ORDERED: AMIODARONE HCL 150 MG in D5W 100 ML IV STA (15:32)
[2020-09-20] MEDS ORDERED: AMIODARONE HCL 900 MG in Dextrose 5%-Water 482 ML IV SCH (16:00)
--- NOTE | 2020-09-20 16:32 | P.PN ---
Date of Service: 09/20/20 Patient has been having continuous afib. Discussed with Dr. Gregg. Will transfer her to the icu and start a continuous amiodarone drip. Trying to establish some rhythm controll Patient family called repeatedly. Tried calling back. Family stated they didnt care if I had other patients to take care of. Tried to explain that she is being taken care of. Unfortunately the oral amiodarone did not convert her. Will put her on a drip. With increased metoprolol
[2020-09-20] MEDS ORDERED: ONDANSETRON 4 MG/2 ML VIAL ONE (16:59)
[2020-09-20 17:23] VITALS: TEMP 97.8
[2020-09-20] MEDS ORDERED: METOPROLOL TAR 50 MG TAB PO SCH (21:00)
[2020-09-20 21:01] VITALS: O2SAT 100
[2020-09-20] MEDS ORDERED: ATORVASTATIN 20 MG TAB ONE (21:05)
[2020-09-20] MEDS ORDERED: APIXABAN 5 MG TABLET ONE (21:05)
[2020-09-20] MEDS ORDERED: METOPROLOL TAR 50 MG TAB ONE (21:06)
[2020-09-20] MEDS: ATORVASTATIN 10 MG TAB PO SCH (21:19)
[2020-09-20] MEDS ORDERED: ATORVASTATIN 10 MG TAB ONE (21:32)
[2020-09-20 22:04] VITALS: BP 95/42
[2020-09-21] MEDS ORDERED: ATROPINE SULF 1 MG/10 ML SYR IV ONE ×2 (00:15→01:02)
[2020-09-21] MEDS ORDERED: ATROPINE SULF 1 MG/10 ML SYR IV STA (00:31)
--- NOTE | 2020-09-21 00:37 | PN ---
Date of Progress Note: 09/20/2020 Subjective: The patient was seen at bedside. She continues to be in atrial fibrillation. However, she was given only the 150 mg of amiodarone and she was not maintained on the drip. Continues to fee l nauseated with palpitations. Physical Examination: Vital Signs: Reviewed Head and Neck: Pupils are equal, reactive to light. Intact eye movements. No JVD. No cervical lym phadenopathy. Neck: Supple. Thyroid is not enlarged. Lungs: Clear to auscultation bilaterally. No rhonchi, rales, or crackles. No accessory muscle use. Heart: Regular rate and rhythm. No extra sounds. Abdomen: Soft, nontender. Bowel sounds positive. No organomegaly. No masses or hernia. No rigidi ty or rebound. Extremities: There is no edema, clubbing, cyanosis. Intact pulses. Skin: No rash was noted. Neurologic: Alert, awake with confusion. No focal deficits appreciated. Lymph Nodes: No cervical or inguinal lymphadenopathy. Investigations: Labs were reviewed. Assessment And Plan: Atrial fibrillation with rapid ventricular response. Recommend to initiate the infusion of amiodarone as outlined yesterday in my consult note and we will recommend a full 24 hour s of load and then switch to oral 200 mg twice a day. If she does not convert on amiodarone, then a MARLINE guided cardioversion will be recommended. Continue Zeina. Thank you for the consult. /DESIRAE Voice ID: [id number] Report ID: [id number]
--- NOTE | 2020-09-21 00:47 | CON ---
Date of Consultation: 09/19/2020 Reason For Consultation: Atrial fibrillation. History Of Present Illness: This is an elderly female with nonobstructive coronary artery disease an d atrial fibrillation. She was hospitalized recently with atrial fibrillation and RVR. Did convert to sinus rhythm on amiodarone. However, she was sent home on beta barbara only and no amiodarone. S he comes back with palpitations, nausea and generalized weakness and found to be in atrial fibrillati on with rapid ventricular response. We evaluated at bedside. Heart rate is running between 120 to 1 30 and there is no chest pain. Past Medical History: Atrial fibrillation, hypertension, coronary artery disease. Medications: Refer to reconciliation sheet for detailed list. Allergies: NO KNOWN DRUG ALLERGIES. Social History: Does not smoke or drink. Does not use any drugs. Family History: No premature coronary artery disease or cancer. Review of Systems: All systems reviewed and they were negative except what mentioned in the HPI. Physical Examination: Vital Signs: Reviewed. Head and Neck: Pupils are equal, reactive to light. Intact eye movements. No JVD. No cervical lym phadenopathy. Neck: Supple. Thyroid is not enlarged. Lungs: Clear to auscultation bilaterally. No rhonchi, rales, or crackles. No accessory muscle use. Heart: Irregularly irregular. No extra sounds. Abdomen: Soft, nontender. Bowel sounds positive. No organomegaly. No masses or hernia. No rigidi ty or rebound. Extremities: There is no edema, clubbing, cyanosis. Intact pulses. Skin: No rash was noted. Neurologic: Alert, awake, oriented x3. No acute focal deficits appreciated. Lymph Nodes: No cervical or inguinal lymphadenopathy. Investigations: Labs were reviewed. Assessment And Plan: Atrial fibrillation with rapid ventricular response. I will recommend to start on amiodarone drip, load for the full 24 hours with 150 mg over 10 minutes and then 1 mg/minute for 6 hours and then 0.5 mg/minute for the reminder of the 24 hour and then once loaded to switch to oral 200 mg twice a day and also continue metoprolol and adjust dose as needed for rate control and jeffery nue Eliquis. Thank for the consult. /DESIRAE Voice ID: [id number] Report ID: [id number]
[2020-09-21] MEDS ORDERED: RSI MEDICATION KIT IV ONE (00:59)
[2020-09-21] MEDS ORDERED: DOBUTAMINE 250 MG/250 ML BAG IV PRN (01:02)
[2020-09-21] MEDS ORDERED: GLUCAGON 1 MG/VIAL IV PRN (01:32)
[2020-09-21 01:52] LABS: Absolute Lymphocytes (CBC) 1.9 K/uL (0.7-4.9); Basophils % 0.3 % (0-1.3); Hematocrit 31.7 % (36.0-45.0); Lymphocytes % 12.2 % (15.3-44.8); MPV 8.6 fL (7.6-11.3)
[2020-09-21] MEDS ORDERED: GLUCAGON 1 MG/VIAL ONE (02:01)
[2020-09-21 02:03] LABS: Potassium 6.5 mmol/L (3.5-5.1)
[2020-09-21] MEDS ORDERED: INSULIN -REGULAR HUMAN 50 UNIT/0.5 ML ML ONE (02:21)
[2020-09-21] MEDS ORDERED: D50W 25 GM/50 ML SYRINGE IV ONE ×2 (02:22→03:59)
[2020-09-21] MEDS ORDERED: FUROSEMIDE 40 MG/4 ML VIAL IV STA (02:27)
[2020-09-21] MEDS ORDERED: NA CHLORIDE 0.9% 500 ML ONE (02:28)
[2020-09-21 02:29] LABS: Arterial Blood Carboxyhemoglob 0.7 % (0-1.5); Blood Gas Oxyhemoglobin 97.1 % (94-97); Blood O2 Saturation 98.8 % (92-98.5)
[2020-09-21] MEDS ORDERED: FUROSEMIDE 40 MG/4 ML VIAL ONE (03:02)
[2020-09-21] MEDS ORDERED: NOREPINEPHRINE 4mg/D5W 250mL 4 MG/250 ML BAG IV ONE (03:13)
--- NOTE | 2020-09-21 03:45 | P.PN ---
Subjective Date of Service: 09/21/20 Primary Care Provider: Deirdre Chief Complaint: Atrial fib with RVR I was called to Ms. Nickersonee bedside d/t bradycardia. Her pulse was 20 bpm. She was hypotensive and unconscious. She was on amiodarone drip. 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 she was intubated and mechanically ventilated. she received 3 doses of atropine 0.5 mg iv, was started on transcutaneous pacing with 80 rate and 100 current output with good capture and was given glucagon [address] Williamson was consulted and advised to start dobutamine drip, which was started. I placed a right IJ central line as well. BGL was normal and cmp was sent. As advised by dr. Williamson and dr. Calle, we initiated a transfer to higher level of care as patient needed IV pacemaker and this service is not available in our hospital. after 30 minutes patient had cardiac arrest. She was resuscitated according to acls. She received multiple doses of epinephrine and bicarbonate. Potassium was elevated to 6.5 and she was give calcium chloride, insulin and D50. She had ROSC after 20 min of CPR. She remained in asystole throughout the 20 minutes. EKG shows LBBB. I had conversation with both and daughter, both came at bedside and I explained the events and prognosis. The states that her wishes is to pursue comfort care if her condition deteriorates further. At 0250 she lost pulse and was in asystole, chest compression was done for 10 minutes and the confirmed that her best wishes is to not continue CPR or any further resuscitation and she wish to peacefully. Patient was pronounced at 0306. Physical Examination - Vital Signs Temperature: 97.8 F Blood Pressure: 95/42 Pulse: 59 Respirations: 18 Pulse Ox (%): 99 Assessment And Plan Physician Review: Patient Assessed, Agree with Above Assessment and Plan
[2020-09-21] MEDS ORDERED: DOBUTAMINE 250 MG/250 ML BAG IV ONE (03:59)
[2020-09-21] MEDS ORDERED: EPINEPHrine 1 MG/10 ML SYR IV ONE (03:59)
[2020-09-21] MEDS ORDERED: Caclcium Chloride 10% INJ SYR IV ONE (03:59)
--- NOTE | 2020-09-21 07:17 | RAD REPORT ---
EXAM DESCRIPTION: RAD - Chest Single View - 09/21/2020 1:20 am CLINICAL HISTORY: Post Intubation COMPARISON: September 18 TECHNIQUE: AP portable chest image was obtained 09/21/2020 1:20 am . FINDINGS: Endotracheal tube has been placed with tip mid aortic arch level 2 cm above the shira. No new or progressive lung parenchymal process. Small left-side and moderate right-sided pleural effusi ons are present with lung base atelectasis. Heart size is upper normal. Pulmonary vasculature within normal limits. Right apex opacification is believed be pleural fluid. No pneumothorax identified. No acute bony abnormality seen. No acute aortic findings suspected. IMPRESSION: Endotracheal tube placement with tip mid aortic arch level. Moderate right-side and smaller left-sided pleural effusions with lung base atelectasis.
--- NOTE | 2020-09-21 08:20 | P.DS ---
Admission Date: 09/18/20 Discharge Date: 09/21/20 Primary Care Provider: Deirdre Disposition: Discharge Condition: Reason for Admission: Atrial fib with RVR - Problems (1) Atrial fibrillation with RVR Status: Acute (2) CAD (coronary artery disease) Status: Acute Qualifiers: Coronary Disease-Associated Artery/Lesion type: [place] artery Associated angina: without angina (3) HTN (hypertension) Status: Acute Qualifiers: Hypertension type: essential hypertension (4) Hypokalemia Status: Acute Brief History of Present Illness: Patient of mine with recent NSTEMI. She went home on Sunday. Had nausea and shortness of breath last night. Her called the ER. Was found to be tachycardic in atrial fib. She had an elevated bnp. However she does not seem to be fluid overloaded. The patient was converted recently on amiodarone. However she was doing well and not discharged on it. The patient feels better this morning. However she is still in atrial fib with a heart rate of 90-110. Hospital Course: Patient became bradycardic at 11pm 09/20/20. Amiodarone was held. However she continued to be bradycardic. Was starting to have right sided weakness. She was coded at 1am on 09/21. at approx 3am Our condolences to her family. Thank you for allowing me to take part in her care. Vital Signs/Physical Exam: Temp Pulse Resp BP Pulse Ox 97.8 F 59 18 95/42 L 99 09/21/20 03:45 09/21/20 03:45 09/21/20 03:45 09/21/20 03:45 09/21/20 03:45 Laboratory Data at Discharge: WBC Cancelled 09/21/20 06:00 Hgb Cancelled 09/21/20 06:00 Hct Cancelled 09/21/20 06:00 Plt Count Cancelled 09/21/20 06:00 PT 15.4 SECONDS (9.5-12.5) H 09/18/20 22:48 INR 1.34 09/18/20 22:48 Sodium Cancelled 09/21/20 06:00 Potassium Cancelled 09/21/20 06:00 BUN Cancelled 09/21/20 06:00 Creatinine Cancelled 09/21/20 06:00 Glucose Cancelled 09/21/20 06:00 Magnesium 1.9 mg/dL (1.8-2.4) 09/18/20 22:48 Total Bilirubin Cancelled 09/21/20 06:00 AST Cancelled 09/21/20 06:00 ALT Cancelled 09/21/20 06:00 Alkaline Phosphatase Cancelled 09/21/20 06:00 Troponin I 0.16 ng/mL (0.0-0.045) H 09/19/20 08:08 Home Medications: Clopidogrel Bisulfate [Plavix] 75 mg PO DAILY 09/05/20 Irbesartan [Avapro] 300 mg PO DAILY 09/05/20 Metoprolol Succinate [Toprol Xl] 50 mg PO DAILY 09/05/20 Potassium Chloride 10 meq PO DAILY 15 Days #30 tablet.er 09/14/20 Sodium Chloride Tab [NaCl Tabs] 1 gm GT BID 15 Days #30 tab 09/14/20 Atorvastatin Calcium [Lipitor] 10 mg PO BEDTIME 09/19/20 Trazodone [Desyrel*] 0.5 tab PO BEDTIME 09/19/20 Followup: Rudy Gilmore MD [Primary Care Provider] - Time spent managing pt's care (in minutes): 30
--- NOTE | 2020-09-21 11:16 | RAD REPORT ---
EXAM DESCRIPTION: CT - Ct Stroke Brain Wo Cont - 09/21/2020 6:56 am ADDENDUM #1 THIS REPORT CONTAINS FINDINGS THAT MAY BE CRITICAL TO PATIENT CARE: Notification that the physician w as unable to speak on the phone occurred on 09/21/2020 1:26 AM CDT . I discussed the findings with Debbie Liriano who agreed to take the results on the phone on behalf of the physician, and acknowledg es their critical nature. Electronically signed by: Nader Zacarias MD 09/21/2020 1:27 AM CDT End of Addendum EXAM DESCRIPTION: CT Head Without Intravenous Contrast CLINICAL HISTORY: The patient is 85 years old and is Female; AMS TECHNIQUE: Axial computed tomography images of the head/brain without intravenous contrast. Sagitt al and coronal reformatted images were created and reviewed. This CT exam was performed using one o r more of the following dose reduction techniques: automated exposure control, adjustment of the mA and/or kV according to patient size, and/or use of iterative reconstruction technique. COMPARISON: CT head 09/12/2020. FINDINGS: Brain: [id number] nonspecific white matter changes likely related to chronic micro vascular ischemic disease. No hemorrhage. Ventricles: Unremarkable. No ventriculomegaly. Bones/joints: Unremarkable. No acute fracture. Soft tissues: Unremarkable. Sinuses: Unremarkable as visualized. Mastoid air cells: Unremarkable as visualized. No mastoid effusion. IMPRESSION: No acute intracranial abnormality. Electronically signed by: Nader Zacarias MD 09/21/2020 1:04 AM CDT Due to temporary technical issues with the PACS/Fluency reporting system, reports are being signed by the in house radiologists without review as a courtesy to insure prompt reporting. The interpreting radiologist is fully responsible for the content of the report.
--- NOTE | 2020-09-22 07:05 | EKG ---
Test Date: 2020-09-21 Test Time: 02:07:44 Ventilation Mechanic: MEASUREMENT RESULTS: Intervals: Rate: 95 VT: QRSD: 152 QT: 408 QTc: 512 [place]: P: VT: QRS: -64 T: 80 INTERPRETIVE STATEMENTS: Undetermined rhythm Left axis deviation Left bundle branch block Abnormal ECG Compared to ECG 09/18/2020 22:35:39 Left-axis deviation now present Left bundle-branch block now present Atrial fibrillation no longer present Myocardial infarct finding no longer present Electronically Signed On 09-22-20 07:02:33 CDT by Preston Pinedo
== END 2020-09-21 04:00 | disposition expired ==
LOC: ER 22:26 → ERHOLD 23:42 → 2ND 09-19 02:14 → ERHOLD 09-20 15:58
PROVIDERS: ADMIT Internal Medicine; ATTEND Emergency Medicine
PROC: 5A1935Z Respiratory Ventilation, Less than 24 Consecutive Hours (ICD-10-PCS; principal; 2020-09-21)
PROC: 0BH17EZ Insertion of Endotracheal Airway into Trachea, Via Natural or Artificial Opening (ICD-10-PCS; 2020-09-21)
PROC: 5A12012 Performance of Cardiac Output, Single, Manual (ICD-10-PCS; 2020-09-21)
DX: I48.91 Unspecified atrial fibrillation (principal); I22.2 Subsequent non-ST elevation (NSTEMI) myocardial infarction; I50.31 Acute diastolic (congestive) heart failure; I21.9 Acute myocardial infarction, unspecified; J96.01 Acute respiratory failure with hypoxia; I11.0 Hypertensive heart disease with heart failure; I44.7 Left bundle-branch block, unspecified; K21.9 Gastro-esophageal reflux disease without esophagitis; E87.5 Hyperkalemia; I46.9 Cardiac arrest, cause unspecified; E78.5 Hyperlipidemia, unspecified; I25.10 Atherosclerotic heart disease of native coronary artery without angina pectoris; E87.6 Hypokalemia; R57.0 Cardiogenic shock; Z79.02 Long term (current) use of antithrombotics/antiplatelets; Z79.899 Other long term (current) drug therapy; Z86.73 Personal history of transient ischemic attack (TIA), and cerebral infarction without residual deficits; Z90.49 Acquired absence of other specified parts of digestive tract; Z20.822 Contact with and (suspected) exposure to COVID-19
CPT/HCPCS: 36415; 51702; 70450; 71045; 80048; 80053; 80076; 81003; 81015; 82040; 82043; 82306; 82570; 82805; 82947; 83735; 83880; 83970; 84100; 84156; 84484; 84550; 85025; 85610; 93005; 94002; 96374; 99285; J0171; J0282; J1250; J1610; J1940; J2405; J7040; J7060; U0003